=== PATIENT | male | born 1935 | race Caucasian/White ===

== ENCOUNTER → 2017-09-06 07:21 | Outpatient (CLI) | payer MEDICARE, BC, SELFPAY ==
[2017-09-06 08:13] LABS: Add Manual Diff / Slide Review NO; Basophils Percent Auto 0.1 % (0-2); Eosinophils Percent Auto 9.8 % (2-4); Hematocrit 43.1 % (41-53); Hemoglobin 14.4 g/dL (13.5-17.5); Lymphocytes Percent Auto 30.9 % (25-40); Mean Corpuscular HGB Conc 33.4 % (30-36); Mean Corpuscular Volume 95.8 fL (80-100); Monocytes Percent Auto 9.2 % (3-14); Neutrophils Absolute Auto 3000 /uL (3000-5900); Platelet Count 196 X10^3/uL (150-400); Red Cell Distribution Width 14.6 % (11.6-14.8); White Blood Cell Count 6.1 X10^3/uL (4.5-11.0)
[2017-09-06 08:37] LABS: Calcium 9.5 mg/dL (8.4-10.2); Cholesterol 167 mg/dL (140-199); Estimated Glomerular Filt Rate > 60.0 mL/min (>60); Glucose 106 mg/dL (80-110); HDL Cholesterol 42 mg/dL (40-60); HEMOLYSIS < 15 (0-50); LDL Cholesterol Calculated 108 mg/dL (<100); Potassium 4.9 mmol/L (3.4-5.1); Sodium 145 mmol/L (137-145); Triglycerides 87 mg/dL (35-150)
== END ==
PROVIDERS: Family Provider Family Medicine; PCP Family Medicine; Visit Provider Internal Medicine Cardiovascular Disease
DX: I48.91 Unspecified atrial fibrillation (principal)
CPT/HCPCS: 36415; 80048; 80061; 85025

== ENCOUNTER 2017-12-30 09:25 | Emergency (ER) | payer MEDICARE, BC, SELFPAY ==
[2017-12-30] VITALS (7 sets, daily range): BP systolic 90–111; BP diastolic 55–79; PULSE 42–89; RESP 14–19; TEMP 36.4–36.7; O2SAT 90–100; BMI 24.8
[2017-12-30 10:07] LABS: Add Manual Diff / Slide Review NO; Eosinophils Percent Auto 1.3 % (2-4); Hematocrit 42.7 % (41-53); Hemoglobin 14.8 g/dL (13.5-17.5); Mean Corpuscular HGB Conc 34.7 % (30-36); Mean Corpuscular Hemoglobin 33.2 PG (26-34); Mean Corpuscular Volume 95.6 fL (80-100); Monocytes Percent Auto 10.9 % (3-14); Neutrophils Absolute Auto 7200 /uL (3000-5900); Neutrophils Percent Auto 66.8 % (50-75); Platelet Count 204 X10^3/uL (150-400); Red Blood Cell Count 4.47 X10^6/uL (4.5-5.9); White Blood Cell Count 10.8 X10^3/uL (4.5-11.0)
[2017-12-30] MEDS: SODIUM CHLORIDE 0.9% 1,000 ML 1000 ML IV (10:15)
[2017-12-30 10:16] LABS: Alanine Aminotransferase 24 IU/L (21-72); Albumin 4.4 g/dL (3.5-5.0); Albumin Globulin Ratio 1.4 (1.0-2.8); Alkaline Phosphatase 46 U/L (38-126); Aspartate Aminotransferase 27 IU/L (17-59); BUN Creatinine Ratio 14.6 (6-22); Bilirubin Total 1.4 mg/dL (0.2-1.3); Blood Urea Nitrogen 19 mg/dL (9-20); Carbon Dioxide 26 mmol/L (22-32); Chloride 102 mmol/L (98-107); Creatine Kinase 121 U/L (55-170); Estimated Glomerular Filt Rate 52.9 mL/min (>60); Globulin 3.2 g/dL (1.7-4.1); Glucose 103 mg/dL (80-110); HEMOLYSIS 20 (0-50); Potassium 4.8 mmol/L (3.4-5.1); Sodium 138 mmol/L (137-145); Total Protein 7.6 g/dL (6.3-8.2)
--- NOTE | 2017-12-30 10:23 | ED.ARRPALP ---
HPI - Arrhythmia/Palpitations General Chief Complaint: Syncope Stated Complaint: WEAK,KNEES GIVE OUT,PASSED OUT Time Seen by Provider: 12/30/17 09:40 Source: patient Mode of arrival: ambulatory Limitations: no limitations History of Present Illness HPI narrative: Patient is an 82-year-old male with history of AFib on Xarelto presenting 2 days after syncopal episode. He was getting up to use the restroom 2 nights ago when he felt his heart racing he went down to his knees passed out he woke up of sitting up. He denies hitting his head the incident was not witnessed. Since then he has had difficulty ambulating he feels like his legs are giving out from under him. He still just does not feel quite right but denies any chest pain or heart palpitations. He has not passed out again. Id blood pressure is noted to be a little low at the moment systolic of 90. He says he has chronically low blood pressure. Related Data Home Medications Medication Instructions Recorded Confirmed vit C,D-Ua-lnwol-lutein-zeaxan 1 cap PO QDAY #0 cap 12/29/12 [Ocuvite Lutein and Zeaxanthin] Previous Rx's Medication Instructions Recorded albuterol sulfate [Proventil HFA] 2 puff INH SEE INSTRUCTIONS PRN #1 05/11/17 inh atorvastatin [Lipitor] 10 mg PO HS #90 tab 05/20/17 rivaroxaban [Xarelto] 15 mg PO QDAY #90 tab 06/14/17 metoprolol succinate ER 25 mg 25 mg PO QDAY #90 tab 08/18/17 tablet,extended release 24 hr Allergies Allergy/AdvReac Type Severity Reaction Status Date / Time No Known Drug Allergies Allergy Verified 12/30/17 09:47 Review of Systems Review of Systems All systems reviewed & are unremarkable except as noted in HPI and below Constitutional Denies chills, Denies fever(s), Denies lethargy and Denies weakness Cardiovascular Reports as per HPI, Denies chest pain, Reports syncope, Denies edema, Denies dyspnea and Denies dyspnea on exertion Respiratory Denies cough, Denies dyspnea, Denies dyspnea on exertion and Denies wheezing Gastrointestinal Gastrointestinal: Denies abdominal pain, Denies change in bowel habits, Denies diarrhea, Denies nausea and Denies vomiting Musculoskeletal Reports muscle weakness, Denies numbness and Denies stiffness Integumentary/Breasts Denies pruritus, Denies erythema, Denies rash and Denies wounds Neurologic Reports syncope, Denies numbness and Denies weakness Allergic/Immunologic Denies wheezing PFSH Medical History Atrial fibrillation (Acute) Surgical History History of vasectomy Status post colonoscopy Status post tonsillectomy and adenoidectomy Family History Father Diabetes mellitus Social History Smoking Status: Former smoker Exam Initial Vital Signs Initial Vital Signs: Vital Signs Temperature 98.1 F 12/30/17 09:43 Pulse Rate 70 12/30/17 09:43 Respiratory Rate 17 12/30/17 09:43 Blood Pressure 111/79 12/30/17 09:43 Pulse Oximetry 100 12/30/17 09:43 GENERAL: Alert elderly male, no acute distress. HEENT: Head atraumatic,EOMI, pupils reactive, face symmetric, [moist] mucous membranes CARDIOVASCULAR: Regular rate and rhythm without murmurs, rubs or gallops. RESPIRATORY: Breath sounds equal bilaterally, no wheezes rales or rhonchi. ABDOMEN: Soft, nontender. Normoactive bowel sounds all 4 quadrants. No guarding or rebound. [RECTAL:] [Hemoccult-positive, no hemorrhoids, nontender] : No CVA tenderness EXTREMITIES: Normal range of motion, no clubbing or edema. Neurovascularly intact NEUROLOGICAL: Alert and oriented x4.Normal gait and speech. Cranial nerves II through XII grossly intact. [Good qvwsyi-xr-xhle, good dqyh-vu-dfbf, strength equal bilaterally, no dysarthria or aphasia, sensation in tact to soft touch bilaterally, no visual changes, no facial droop] SKIN: Warm, dry, no laceration, no petechiae, no rashes or lesions. Course Orders Ordered: Discontinued Medications Sodium Chloride (Normal Saline 0.9%) 1,000 mls @ 1,000 mls/hr IV BOLUS ONE Stop: 12/30/17 10:48 Last Infusion: 12/30/17 12:00 Dose: 0 mls/hr Admin: 12/30/17 10:15 Dose: 1,000 mls/hr Vital Signs - 8 hr 12/30/17 09:43 12/30/17 09:46 12/30/17 10:13 Temperature 98.1 F Pulse Rate 70 42 L 89 Respiratory Rate 17 16 14 Blood Pressure 111/79 Blood Pressure [Left Arm] 111/79 90/55 L Pulse Oximetry 100 97 95 12/30/17 10:38 12/30/17 11:06 12/30/17 11:32 Temperature 97.5 F L Pulse Rate 86 Respiratory Rate 19 Blood Pressure Blood Pressure [Left Arm] 103/60 96/64 97/62 Pulse Oximetry 90 L MDM - Arrhythmia/Palpitations Lab Data Attestation: I reviewed the patient's lab results. Result diagrams: 12/30/17 10:00 12/30/17 10:00 Lab Results 12/30/17 12/30/17 12/30/17 Range/Units 10:00 10:00 11:05 WBC 10.8 (4.5-11.0) X10^3/uL RBC 4.47 L (4.5-5.9) X10^6/uL Hgb 14.8 (13.5-17.5) g/dL Hct 42.7 (41-53) % MCV 95.6 (80-100) fL MCH 33.2 (26-34) PG MCHC 34.7 (30-36) % RDW 14.0 (11.6-14.8) % Plt Count 204 (150-400) X10^3/uL Neut % (Auto) 66.8 (50-75) % Lymph % (Auto) 20.0 L (25-40) % [place] % (Auto) 10.9 (3-14) % Eos % (Auto) 1.3 L (2-4) % Baso % (Auto) 1.0 (0-2) % Neut # (Auto) 7200 H (7556-0841) /uL Sodium 138 (137-145) mmol/L Potassium 4.8 (3.4-5.1) mmol/L Chloride 102 (98-107) mmol/L Carbon Dioxide 26 (22-32) mmol/L BUN 19 (9-20) mg/dL Creatinine 1.30 H (0.66-1.25) mg/dL Estimated GFR 52.9 L (>60) mL/min BUN/Creatinine Ratio 14.6 (6-22) Glucose 103 (80-110) mg/dL Calcium 10.0 (8.4-10.2) mg/dL Total Bilirubin 1.4 H (0.2-1.3) mg/dL AST 27 (17-59) IU/L ALT 24 (21-72) IU/L Alkaline Phosphatase 46 (38-126) U/L Total Creatine Kinase 121 (55-170) U/L CK-MB (CK-2) 0.31 (<2.37) ng/mL CK-MB (CK-2) Rel Index 0.3 L (1.5-5.0) % Troponin I < 0.012 (0.01-0.034) ng/mL Total Protein 7.6 (6.3-8.2) g/dL Albumin 4.4 (3.5-5.0) g/dL Globulin 3.2 (1.7-4.1) g/dL Albumin/Globulin Ratio 1.4 (1.0-2.8) Urine RBC 1-5/hpf (0-5/HPF) Urine WBC None seen (0-5/HPF) Urine Bacteria None seen (None) Ur Culture Indicated? Cult not indicated Micro UA Comment Not Reportable Urine Dip Bedside Urine Glucose Negative Bedside Urine Bilirubin - Negative Bedside Urine Ketone - Negative Urine Specific [place] 1.025 Bedside Urine Occult Blood +/- Bedside Urine pH 6.0 Bedside Urine Protein +/- 15 Bedside Urine Urobilinogen - Negative Bedside Urine Nitrite - Negative Bedside Urine Leukocytes - Negative Esterase Imaging Data CT scan - head: Radiologist's impression: PROCEDURE: CT HEAD/BRAIN WO CON INDICATIONS: 82-year-old man with syncope unsteady gait x 2 days on xeralto no head inury TECHNIQUE: Noncontrast 4.5 mm thick angled axial sections acquired from the foramen magnum to the vertex, with coronal and sagittal reformats. For radiation dose reduction, the following was used: automated exposure control, adjustment of mA and/or kV according to patient size. COMPARISON: None. FINDINGS: Image quality: Excellent. CSF spaces: Basal cisterns are patent. No extra-axial fluid collections. The ventricles are symmetric in size and shape. Brain: No intracranial bleeds or masses. There is mild cerebral volume loss for age, with resultant ventricular and sulcal prominence. There are mild periventricular and deep white matter chronic small vessel ischemic changes. There is intracranial internal carotid artery atherosclerosis. Skull and face: Calvarium and visualized facial bones appear intact, without suspicious lesions. Sinuses: There is left maxillary sinus mucosal thickening. Mastoids are clear. IMPRESSION: 1. No acute intracranial abnormalities. 2. Cerebral volume loss and chronic microvascular ischemic changes. 3. Left maxillary sinus mucosal thickening. Dictated by: Tc Doe M.D. on 12/30/2017 at 11:05 ECG Data Attestation: I personally reviewed and interpreted this ECG as follows: Prior ECG tracings: available for review Interpretation: AFib rate [address] changes improved since prior EKG MDM Narrative Medical decision making narrative: Patient ambulatory to the restroom no difficulty. His heart rate does drop sometimes down into the 40s but he is asymptomatic. At this time will decrease his metoprolol from 25 and 50mg to 25mg BID Discharge Plan Departure Patient Disposition: Home Clinical Impression: Atrial fibrillation Discharge Date/Time: 12/30/17 12:13 Interventions: ED Discharge Assessment Last Done: 12/30/17 12:28 Instructions: DI for Atrial Fibrillation Activity Restrictions/Additional Instructions: *You have been diagnosed with atrial fibrillation *What to do: It is thought that you have passed out due to increased heart rate although now your heart rate is lower. Blood work and CT are negative. If your heart rate remains slow medication may need to be adjusted *Continue to take medications as directed Metoprolol 25 mg twice a day, instead of 25 mg in the morning and 50 mg at night *Follow up with your primary care provider in 2-3 days *Return to ER if you should have passing out, heart palpitations, chest pain, shortness of breath or any new, worsening or concerning symptoms Prescriptions: No Action vit C,D-Ai-ctkrl-lutein-zeaxan [Ocuvite Lutein and Zeaxanthin] 1 EACH capsule 1 cap PO QDAY Qty: 0 RF: 0 albuterol sulfate [Proventil HFA] 90 MCG/PUFF HFA aerosol inhaler 2 puff INH SEE INSTRUCTIONS PRNQty: 1 RF: 2 atorvastatin [Lipitor] 10 MG tablet 10 mg PO HS Qty: 90 RF: 2 rivaroxaban [Xarelto] 15 MG tablet 15 mg PO QDAY Qty: 90 RF: 0 metoprolol succinate [Toprol XL] 25 mg tablet extended release 24 hr 25 mg PO QDAY Qty: 90 RF: 3 Referrals: Shan Correia MD [Primary Care Provider] - Hannah Vogt MD [Physician] -
[2017-12-30 10:32] LABS: CKMB % Relative Index 0.3 % (1.5-5.0); Creatine Kinase MB 0.31 ng/mL (<2.37)
--- NOTE | 2017-12-30 10:32 | DI.CT.S_ITS ---
PROCEDURE: CT HEAD/BRAIN WO CON INDICATIONS: 82-year-old man with syncope unsteady gait x 2 days on xeralto no head inury TECHNIQUE: Noncontrast 4.5 mm thick angled axial sections acquired from the foramen magnum to the vertex, with coronal and sagittal reformats. For radiation dose reduction, the following was used: automated exposure control, adjustment of mA and/or kV according to patient size. COMPARISON: None. FINDINGS: Image quality: Excellent. CSF spaces: Basal cisterns are patent. No extra-axial fluid collections. The ventricles are symmetric in size and shape. Brain: No intracranial bleeds or masses. There is mild cerebral volume loss for age, with resultant ventricular and sulcal prominence. There are mild periventricular and deep white matter chronic small vessel ischemic changes. There is intracranial internal carotid artery atherosclerosis. Skull and face: Calvarium and visualized facial bones appear intact, without suspicious lesions. Sinuses: There is left maxillary sinus mucosal thickening. Mastoids are clear. IMPRESSION: 1. No acute intracranial abnormalities. 2. Cerebral volume loss and chronic microvascular ischemic changes. 3. Left maxillary sinus mucosal thickening. Dictated by: Tc Doe M.D. on 12/30/2017 at 11:05 Approved by: Tc Doe M.D. on 12/30/2017 at 11:40
--- NOTE | 2017-12-30 10:44 | PC.NURSE ---
Per pt, had a syncopal episode on Tu Am when pt got out of bed to bathroom and did not sustained injuries but pt down himself on his legs. Pt had similar sx about 5 yrs ago but not sure why. Pt has hx of afib and takes Metoprolol 50mg in AM and 25mg in PM. Denies taking additional dose but states had suffered from afib all night prior the syncope. Pt now here since PCP not available and has been weak, knees buckling with ambulation. Hasn't been eating well but hydrated adequately. Noted, pt has superficial abrasion, 1x3 cm in volar aspect of L FA and a narrow but long and large blister adjcent to the site. Pt denies gotten burn and wasn't sure how pt sustained the wound.
[2017-12-30 10:45] LABS: Troponin I < 0.012 ng/mL (0.01-0.034)
[2017-12-30 11:13] LABS: Bacteria Urine None Seen; WBC Urine None Seen (0-5/HPF)
[2017-12-30 11:30] LABS: Culture Indicated Urine Cult Not Indicated; RBC Urine 1-5/HPF (0-5/HPF)
--- NOTE | 2017-12-30 12:16 | PC.NURSE ---
Pt ambulated to the bathroom in stable gait and back to bed.
== END 2017-12-30 12:13 | disposition home or self-care (01) ==
PROVIDERS: Emergency Provider Emergency Medicine; Family Provider Family Medicine; PCP Family Medicine
DX: I48.91 Unspecified atrial fibrillation (principal); R55 Syncope and collapse
CPT/HCPCS: 70450; 80053; 81003; 81015; 82550; 82553; 84484; 85025; 93005; 96360; 96361; 99285

== ENCOUNTER → 2019-06-05 07:41 | Outpatient (CLI) | payer MEDICARE, BC, SELFPAY ==
[2019-06-05 08:15] LABS: Add Manual Diff / Slide Review NO; Basophils Absolute Auto 100 /uL (0-100); Basophils Percent Auto 1.9 % (0-2); Eosinophils Absolute Auto 600 /uL (0-450); Eosinophils Percent Auto 8.5 % (2-4); Hematocrit 46.1 % (41-53); Hemoglobin 15.8 g/dL (13.5-17.5); Lymphocytes Absolute Auto 1700 /uL (1100-4500); Lymphocytes Percent Auto 26.2 % (25-40); Mean Corpuscular HGB Conc 34.2 % (30-36); Mean Corpuscular Hemoglobin 32.9 PG (26-34); Mean Corpuscular Volume 96.3 fL (80-100); Monocytes Absolute Auto 500 /uL (0-900); Monocytes Percent Auto 8.3 % (3-14); Neutrophils Absolute Auto 3700 /uL (1500-7000); Neutrophils Percent Auto 55.1 % (50-75); Platelet Count 218 X10^3/uL (150-400); Red Blood Cell Count 4.79 X10^6/uL (4.5-5.9); Red Cell Distribution Width 13.9 % (11.6-14.8); White Blood Cell Count 6.7 X10^3/uL (4.5-11.0)
[2019-06-05 08:31] LABS: Alanine Aminotransferase 20 IU/L (<50); Albumin 4.7 g/dL (3.5-5.0); Albumin Globulin Ratio 1.3 (1.0-2.8); Alkaline Phosphatase 62 U/L (38-126); Aspartate Aminotransferase 31 IU/L (17-59); BUN Creatinine Ratio 14.2 (6-22); Bilirubin Total 0.9 mg/dL (0.2-1.3); Blood Urea Nitrogen 17 mg/dL (9-20); Calcium 10.2 mg/dL (8.4-10.2); Carbon Dioxide 27 mmol/L (22-32); Chloride 104 mmol/L (98-107); Cholesterol 179 mg/dL (140-199); Estimated Glomerular Filt Rate 57.8 mL/min (>60); Globulin 3.5 g/dL (1.7-4.1); Glucose 108 mg/dL (80-110); HDL Cholesterol 43 mg/dL (40-60); HEMOLYSIS < 15 (0-50); LDL Cholesterol Calculated 110 mg/dL (<100); Potassium 4.1 mmol/L (3.4-5.1); Sodium 141 mmol/L (137-145); Total Protein 8.2 g/dL (6.3-8.2); Triglycerides 130 mg/dL (35-150)
[2019-06-05 09:07] LABS: TSH w/ Reflex to FT4 2.77 uIU/mL (0.47-4.68)
== END ==
PROVIDERS: Family Provider Family Medicine; PCP Family Medicine; Referring Provider Family Medicine; Visit Provider Family Medicine
DX: E78.5 Hyperlipidemia, unspecified (principal); I48.0 Paroxysmal atrial fibrillation
CPT/HCPCS: 36415; 80053; 80061; 84443; 85025

== ENCOUNTER → 2020-03-29 07:48 | Outpatient (CLI) | payer MEDICARE, BC, SELFPAY ==
[2020-03-29 08:17] LABS: Add Manual Diff / Slide Review NO; Basophils Absolute Auto 0 /uL (0-100); Basophils Percent Auto 0.5 % (0-2); Eosinophils Absolute Auto 600 /uL (0-450); Eosinophils Percent Auto 8.3 % (2-4); Hematocrit 44.6 % (41-53); Lymphocytes Absolute Auto 1900 /uL (1100-4500); Mean Corpuscular HGB Conc 33.7 % (30-36); Mean Corpuscular Hemoglobin 32.7 PG (26-34); Mean Corpuscular Volume 97.1 fL (80-100); Monocytes Absolute Auto 600 /uL (0-900); Monocytes Percent Auto 9.2 % (3-14); Neutrophils Absolute Auto 3700 /uL (1500-7000); Platelet Count 215 X10^3/uL (150-400); Red Blood Cell Count 4.59 X10^6/uL (4.5-5.9); Red Cell Distribution Width 13.6 % (11.6-14.8); White Blood Cell Count 6.8 X10^3/uL (4.5-11.0)
[2020-03-29 08:49] LABS: Alanine Aminotransferase 19 IU/L (<50); Albumin 4.4 g/dL (3.5-5.0); Albumin Globulin Ratio 1.4 (1.0-2.8); Alkaline Phosphatase 62 U/L (38-126); Aspartate Aminotransferase 29 IU/L (17-59); Bilirubin Total 0.9 mg/dL (0.2-1.3); Blood Urea Nitrogen 17 mg/dL (9-20); Calcium 10.1 mg/dL (8.4-10.2); Carbon Dioxide 29 mmol/L (22-32); Chloride 104 mmol/L (98-107); Estimated Glomerular Filt Rate > 60.0 mL/min (>60); Globulin 3.1 g/dL (1.7-4.1); Glucose 104 mg/dL (80-110); HEMOLYSIS < 15 (0-50); Potassium 4.5 mmol/L (3.4-5.1); Sodium 138 mmol/L (137-145); Total Protein 7.5 g/dL (6.3-8.2)
[2020-03-29 09:16] LABS: TSH w/ Reflex to FT4 2.02 uIU/mL (0.47-4.68)
== END ==
PROVIDERS: Family Provider Family Medicine; PCP Family Medicine; Referring Provider Family Medicine; Visit Provider Family Medicine
DX: R55 Syncope and collapse (principal); R53.1 Weakness; I49.9 Cardiac arrhythmia, unspecified
CPT/HCPCS: 36415; 80053; 84443; 85025

== ENCOUNTER 2020-07-26 13:07 | Emergency (ER) | payer MEDICARE, BC, SELFPAY ==
[2020-07-26 13:12] VITALS: BP 133/71; PULSE 75; RESP 14; TEMP 37.3; O2SAT 96; BMI 25.4
--- NOTE | 2020-07-26 13:15 | ED_ITS ---
HPI - General Adult General Chief complaint: Headache Stated complaint: sick,headache x3 days, loss of strength Time Seen by Provider: 07/26/20 13:10 Source: patient Mode of arrival: Ambulatory (With cane) Limitations: no limitations History of Present Illness HPI narrative: Patient is an 84-year-old male. Is on anticoagulation for bradycardia and also atrial fibrillation. He has a pacemaker in place. He states that 3 days ago he developed a headache. He describes it as a pressure/pain behind both his eyes. He is not having any vision changes. Yesterday he took some ibuprofen and that helped his headache ?tremendously ?he has not taken anything today. At the time of my exam he states that he only has a small discomfort. He also states that over the past 3 days he has felt very weak. He describes it as a weakness in his arms and legs. This is why he is having to use a cane. He also describes a trembling in his hands. Related Data Home Medications Medication Instructions Recorded Confirmed vit C,Z-Ex-phuye-lutein-zeaxan 1 cap PO QDAY #0 cap 12/29/12 04/01/20 [Ocuvite Lutein and Zeaxanthin] flecainide 50 mg tablet 50 mg PO Q12H 01/04/18 04/01/20 apixaban 5 mg tablet 5 mg PO BID 06/02/19 04/01/20 Previous Rx's Medication Instructions Recorded atorvastatin 10 mg tablet 10 mg PO HS #90 tab 06/02/19 metoprolol succinate 25 mg 25 mg PO QDAY #90 tab 06/02/19 tablet,extended release 24 hr temazepam 15 mg capsule 15 mg PO BEDTIME PRN #30 cap 04/04/20 Allergies Allergy/AdvReac Type Severity Reaction Status Date / Time No Known Drug Allergies Allergy Verified 07/26/20 13:16 Review of Systems Constitutional Constitutional: Reports fatigue, Denies fever(s), Denies frequent falls, Reports headache(s), Reports malaise and Reports weakness Eyes Eyes: Denies blurry vision and Denies change in vision ENT Ears, Nose, Mouth, and Throat: Denies vertigo, Denies dizziness, Reports headache(s), Reports disequilibrium and Denies sore throat Cardiovascular Cardiovascular: Denies chest pain, Denies syncope, Denies rapid heart rate, Denies irregular heart rhythm, Denies lightheadedness and Denies dyspnea Respiratory Respiratory: Denies cough and Denies dyspnea Gastrointestinal Gastrointestinal: Denies abdominal pain, Denies change in bowel habits, Denies nausea and Denies vomiting Genitourinary Genitourinary: Denies dysuria, Reports urinary frequency, Reports urinary incontinence and Reports urinary urgency Genitourinary: Reports urinary frequency, Denies dysuria, Reports urinary incontinence and Reports urinary urgency Musculoskeletal Musculoskeletal: Denies arthralgias, Denies back pain and Denies myalgias Integumentary/Breasts Skin/Breast: Denies lesions and Denies rash Neurologic Neurologic: Denies behavioral changes, Denies confusion, Denies vertigo, Denies dizziness, Denies syncope, Denies frequent falls, Reports headache(s), Denies memory loss, Reports disequilibrium and Reports weakness Psychiatric Psychiatric: Denies behavioral changes, Denies confusion and Denies memory loss Endocrine Endocrine: Reports fatigue Hematologic/Lymphatic On Anticoagulants: Yes Allergic/Immunologic Allergic/Immunologic: Denies urticaria Patient History Medical History Asthma (1958) Atrial fibrillation Cataract (~2007) Hearing loss (~1999) Hyperlipidemia Macular degeneration Measles Melanoma Mumps Wound, open, forearm Surgical History Anesthesia History of vasectomy S/P surgery on nasal septum (1978) Status post colonoscopy (2004) Status post tonsillectomy and adenoidectomy Family History Father Diabetes mellitus Mother Lymph node cancer Social History marital status: Smoking Status: Former smoker alcohol intake: current (1-2 A DAY ) substance use type: does not use Smoking Status: Former smoker alcohol intake frequency: 0-2 drinks per day Substance Use Type: does not use Exam Initial Vital Signs Initial Vital Signs: Vital Signs Temperature 99.1 F 07/26/20 13:12 Pulse Rate 75 07/26/20 13:12 Respiratory Rate 14 07/26/20 13:12 Blood Pressure 133/71 07/26/20 13:12 Pulse Oximetry 96 07/26/20 13:12 Const General: cooperative, comfortable and well developed Limitations: mental status not altered HENTN Head: normal to inspection Eyes General: appearance normal, both eyes and all related structures Chest Chest: No crepitus and No tenderness Resp Effort & Inspection: normal respiratory effort Auscultation: clear to auscultation bilaterally Cardio Rate: regular rate Rhythm: regular rhythm GI Inspection: non-distended Palpation: soft Skin Lesions: no lesions Rashes: no rashes Neuro General: patient alert, patient awake and patient oriented x3 Cranial Nerves: CN's II-XI intact bilaterally Cognition: normal cognition Speech: speech normal Gait: normal gait (But with a cane) and gait assisted (Cane) Motor: muscle tone normal throughout Sensory Exam: no sensory deficits noted Extrem General: capillary refill normal Psych Appearance: grossly normal and well kempt Scores GCS [place] coma scale eye opening: Spontaneous Luis coma scale verbal response: Orientated Luis coma scale motor response: Obey commands Luis coma scale total score: 15 Course Orders Ordered: ED Orders 07/26/20 13:18 EKG-12 Lead Stat 07/26/20 13:25 Complete Blood Count AUTO DIFF Stat Comprehensive Metabolic Panel Stat Troponin & CK Cardiac Panel Stat 07/26/20 13:37 CT head/brain wo con Stat 07/26/20 15:41 Troponin & CK Cardiac Panel Stat 07/26/20 15:50 Urine Microscopic Stat Discontinued Medications Sodium Chloride (Normal Saline 0.9%) 1,000 mls @ 125 mls/hr IV CONT EMILIA Last Infusion: 07/26/20 16:20 Dose: 0 mls/hr Documented by: Admin: 07/26/20 13:31 Dose: 125 mls/hr Documented by: MYRANDA Vital Signs Vital signs: Vital Signs - 8 hr 07/26/20 13:12 07/26/20 14:12 07/26/20 14:30 Temperature 99.1 F Pulse Rate 75 58 L 62 Respiratory Rate 14 Blood Pressure 133/71 120/65 Pulse Oximetry 96 95 92 07/26/20 15:00 07/26/20 15:30 07/26/20 16:00 Temperature Pulse Rate 64 68 67 Respiratory Rate Blood Pressure 123/64 126/67 128/65 Pulse Oximetry 97 98 99 Medical Decision Making Lab Data Lab results reviewed: Yes I reviewed the patient's lab results. Result diagrams: 07/26/20 13:25 07/26/20 13:25 Labs: Lab Results 07/26/20 07/26/20 07/26/20 Range/Units 13:25 13:25 15:50 WBC 12.9 H (4.5-11.0) X10^3/uL RBC 4.66 (4.5-5.9) X10^6/uL Hgb 15.0 (13.5-17.5) g/dL Hct 44.6 (41-53) % MCV 95.7 (80-100) fL MCH 32.1 (26-34) PG MCHC 33.5 (30-36) % RDW 13.4 (11.6-14.8) % Plt Count 213 (150-400) X10^3/uL Neut % (Auto) 80.5 H (50-75) % Lymph % (Auto) 10.6 L (25-40) % [place] % (Auto) 8.6 (3-14) % Eos % (Auto) 0.1 L (2-4) % Baso % (Auto) 0.2 (0-2) % Neut # (Auto) 20578 H (7890-6210) /uL Lymph # (Auto) 1400 (6339-8155) /uL [place] # (Auto) 1100 H (0-900) /uL Eos # (Auto) 0 (0-450) /uL Baso # (Auto) 0 (0-100) /uL Sodium 133 L (137-145) mmol/L Potassium 3.9 (3.4-5.1) mmol/L Chloride 100 (98-107) mmol/L Carbon Dioxide 24 (22-32) mmol/L BUN 17 (9-20) mg/dL Creatinine 1.33 H (0.66-1.25) mg/dL Estimated GFR 51.2 L (>60) mL/min BUN/Creatinine Ratio 12.8 (6-22) Glucose 98 (80-110) mg/dL Calcium 10.2 (8.4-10.2) mg/dL Total Bilirubin 1.1 (0.2-1.3) mg/dL AST 31 (17-59) IU/L ALT 21 (<50) IU/L Alkaline Phosphatase 63 (38-126) U/L Total Creatine Kinase 172 H (55-170) U/L CK-MB (CK-2) 0.70 (<2.37) ng/mL CK-MB (CK-2) Rel Index 0.4 L (1.5-5.0) % Troponin I 0.015 (0.01-0.034) ng/mL Total Protein 8.0 (6.3-8.2) g/dL Albumin 4.6 (3.5-5.0) g/dL Globulin 3.4 (1.7-4.1) g/dL Albumin/Globulin Ratio 1.4 (1.0-2.8) Urine RBC 1-5/hpf (0-5/HPF) Urine WBC 0-1/hpf (0-5/HPF) Ur Squamous Epith Cells 0-1 /hpf (0-5/HPF) Amorphous Sediment 1+ Urine Bacteria None seen (None) Granular Casts 1-5/lpf (None) Urine Mucus 1+ H (Negative) Ur Culture Indicated? Cult not indicated Urine Dip Bedside Urine Glucose Negative Bedside Urine Bilirubin - Negative Bedside Urine Ketone + 15 Urine Specific [place] 1.025 Bedside Urine Occult Blood + Bedside Urine pH 6 Bedside Urine Protein - Negative Bedside Urine Urobilinogen - Negative Bedside Urine Nitrite - Negative Bedside Urine Leukocytes - Negative Esterase Point of care testing: Urine Dip Bedside Urine Glucose Negative Bedside Urine Bilirubin - Negative Bedside Urine Ketone + 15 Urine Specific [place] 1.025 Bedside Urine Occult Blood + Bedside Urine pH 6 Bedside Urine Protein - Negative Bedside Urine Urobilinogen - Negative Bedside Urine Nitrite - Negative Bedside Urine Leukocytes - Negative Esterase Imaging Data CT scan - head: Radiologist's Impression: [address] [id number] Scan ReportSigned Patient: Donavan Mendieta TMR#: [id number]: 6Acct:[id number]/Sex: 84 / MDate of Service: 07/26/20Loc: EDAccession Number: [id number] Procedure: CT head/brain wo con Ordering Provider: Martin Arita D.O. PROCEDURE: CT HEAD/BRAIN WO CON INDICATIONS: Bilateral headache with bilateral upper lower extremity weak TECHNIQUE: Noncontrast 4.5 mm thick angled axial sections acquired from the foramen magnum to the vertex, with coronal and sagittal reformats. For radiation dose reduction, the following was used: automated exposure control, adjustment of mA and/or kV according to patient size. COMPARISON: None. FINDINGS: Image quality: Excellent. CSF spaces: Basal cisterns are patent. No extra-axial fluid collections. The ventricles are symmetric in size and shape. Brain: No intracranial bleeds or masses. There is cerebral volume loss for age, with resultant ventricular and sulcal prominence. There are periventricular and deep white matter chronic small vessel ischemic changes. There is intracranial internal carotid artery atherosclerosis. Skull and face: Calvarium and visualized facial bones appear intact, without suspicious lesions. Sinuses: Visualized sinuses and mastoids are clear. IMPRESSION: No acute intracranial disease process. Dictated by: Mayte Ocoha MD, PhD on 07/26/2020 at 13:52 Approved by: Mayte Ochoa MD, PhD on 07/26/2020 at 13:53 ECG Data Attestation: I personally reviewed and interpreted this ECG as follows: Prior ECG tracings: not available for review Interpretation: Atrially paced Ventricular rate is 63 Normal QRS Normal QTC No ST T wave changes MDM Narrative Medical decision making narrative: He has had symptoms for [address] is unremarkable. While lying in bed he has got a nonfocal neurologic exam however he did have quite a bit of unsteadiness with transitioning from the bed to his wheelchair. There is no signs of intracranial hemorrhage. No chest pain. There is no signs of any infection. His urine is unremarkable. Patient states he would like to go home. Unfortunately do not have a specific diagnosis. He does not have vertigo. Outside the window for any tPA or other code IR. He is afebrile. We discussed return precautions and follow-up instructions. His was instructed that she needed contact his primary doctor for follow-up. They both expressed understanding and agreement. Discharge Plan Departure Patient Disposition: Home Clinical Impression: Headache, Weakness Instructions: DI for Headache Activity Restrictions/Additional Instructions: Your workup here in the emergency department is very reassuring. Your head CT is unremarkable. There is no signs of any infections. Continue all of your medications as directed. Contact your primary provider for a follow-up. Return to the emergency department for any new or worsening symptoms Prescriptions: No Action Eliquis 5 mg tablet 5 mg PO BID RF: 0 atorvastatin [Lipitor] 10 mg tablet 10 mg PO HS Qty: 90 RF: 2 metoprolol succinate [Toprol XL] 25 mg tablet extended release 24 hr 25 mg PO QDAY Qty: 90 RF: 3 vit C,C-Zu-vhpui-lutein-zeaxan [Ocuvite Lutein and Zeaxanthin] 1 EACH capsule 1 cap PO QDAY Qty: 0 RF: 0 temazepam 15 mg capsule 15 mg PO BEDTIME PRN (Reason: sleep) Qty: 30 RF: 0 flecainide 50 mg tablet 50 mg PO Q12H RF: 0 Referrals: Shan Correia MD [Primary Care Provider] -
[2020-07-26] MEDS: SODIUM CHLORIDE 0.9% 1,000 ML 125 ML IV (13:31)
--- NOTE | 2020-07-26 13:37 | DI.CT.S_ITS ---
PROCEDURE: CT HEAD/BRAIN WO CON INDICATIONS: Bilateral headache with bilateral upper lower extremity weak TECHNIQUE: Noncontrast 4.5 mm thick angled axial sections acquired from the foramen magnum to the vertex, with coronal and sagittal reformats. For radiation dose reduction, the following was used: automated exposure control, adjustment of mA and/or kV according to patient size. COMPARISON: None. FINDINGS: Image quality: Excellent. CSF spaces: Basal cisterns are patent. No extra-axial fluid collections. The ventricles are symmetric in size and shape. Brain: No intracranial bleeds or masses. There is cerebral volume loss for age, with resultant ventricular and sulcal prominence. There are periventricular and deep white matter chronic small vessel ischemic changes. There is intracranial internal carotid artery atherosclerosis. Skull and face: Calvarium and visualized facial bones appear intact, without suspicious lesions. Sinuses: Visualized sinuses and mastoids are clear. IMPRESSION: No acute intracranial disease process. Dictated by: Mayte Ochoa MD, PhD on 07/26/2020 at 13:52 Approved by: Mayte Ochoa MD, PhD on 07/26/2020 at 13:53
[2020-07-26 13:49] LABS: Alanine Aminotransferase 21 IU/L (<50); Albumin 4.6 g/dL (3.5-5.0); Albumin Globulin Ratio 1.4 (1.0-2.8); Alkaline Phosphatase 63 U/L (38-126); Aspartate Aminotransferase 31 IU/L (17-59); BUN Creatinine Ratio 12.8 (6-22); Bilirubin Total 1.1 mg/dL (0.2-1.3); Blood Urea Nitrogen 17 mg/dL (9-20); Calcium 10.2 mg/dL (8.4-10.2); Carbon Dioxide 24 mmol/L (22-32); Chloride 100 mmol/L (98-107); Creatine Kinase 172 U/L (55-170); Estimated Glomerular Filt Rate 51.2 mL/min (>60); Globulin 3.4 g/dL (1.7-4.1); Glucose 98 mg/dL (80-110); HEMOLYSIS < 15 (0-50); Potassium 3.9 mmol/L (3.4-5.1); Sodium 133 mmol/L (137-145)
[2020-07-26 13:58] LABS: Add Manual Diff / Slide Review NO; Basophils Absolute Auto 0 /uL (0-100); Basophils Percent Auto 0.2 % (0-2); Eosinophils Absolute Auto 0 /uL (0-450); Eosinophils Percent Auto 0.1 % (2-4); Hematocrit 44.6 % (41-53); Lymphocytes Absolute Auto 1400 /uL (1100-4500); Lymphocytes Percent Auto 10.6 % (25-40); Mean Corpuscular HGB Conc 33.5 % (30-36); Mean Corpuscular Hemoglobin 32.1 PG (26-34); Mean Corpuscular Volume 95.7 fL (80-100); Monocytes Absolute Auto 1100 /uL (0-900); Monocytes Percent Auto 8.6 % (3-14); Neutrophils Absolute Auto 10400 /uL (1500-7000); Neutrophils Percent Auto 80.5 % (50-75); Platelet Count 213 X10^3/uL (150-400); Red Blood Cell Count 4.66 X10^6/uL (4.5-5.9); Red Cell Distribution Width 13.4 % (11.6-14.8); White Blood Cell Count 12.9 X10^3/uL (4.5-11.0)
[2020-07-26 13:59] LABS: Troponin I 0.015 ng/mL (0.01-0.034)
[2020-07-26 14:03] LABS: CKMB % Relative Index 0.4 % (1.5-5.0)
[2020-07-26 14:12] VITALS: PULSE 58; O2SAT 95
[2020-07-26 14:30] VITALS: BP 120/65; PULSE 62; O2SAT 92
[2020-07-26 15:00] VITALS: BP 123/64; PULSE 64; O2SAT 97
[2020-07-26 15:30] VITALS: BP 126/67; PULSE 68; O2SAT 98
[2020-07-26 16:00] VITALS: BP 128/65; PULSE 67; O2SAT 99
[2020-07-26 16:10] LABS: Bacteria Urine None Seen
[2020-07-26 16:22] LABS: Amorphous Sediment Urine 1+; Culture Indicated Urine Cult Not Indicated; Granular Casts Urine 1-5/LPF; Mucus Urine 1+ (Negative); RBC Urine 1-5/HPF (0-5/HPF); Squamous Epithelial Cell Urine 0-1 /HPF (0-5/HPF); WBC Urine 0-1/HPF (0-5/HPF)
== END 2020-07-26 16:30 | disposition home or self-care (01) ==
PROVIDERS: Emergency Provider Emergency Medicine; Family Provider Family Medicine; PCP Family Medicine
DX: R51.9 Headache, unspecified (principal); R53.1 Weakness
CPT/HCPCS: 36415; 70450; 80053; 81003; 81015; 82550; 82553; 84484; 85025; 93005; 96360; 96361; 99284

== ENCOUNTER → 2021-02-06 14:03 | Outpatient (CLI) | payer MEDICARE, BC, SELFPAY ==
--- NOTE | 2021-02-06 14:05 | DI.RAD.S_ITS ---
PROCEDURE: XR CHEST 2V INDICATIONS: cough TECHNIQUE: 2 views of the chest were acquired. COMPARISON: [facility], , CHEST 1 VIEW, 05/06/2017, 22:50. FINDINGS: Surgical changes and devices: Pacemaker Lungs and pleura: Lungs are clear. No pleural effusions or pneumothorax. Mediastinum: Mediastinal contours are normal. Heart size is normal. Bones and chest wall: No suspicious bony abnormalities. Soft tissues appear unremarkable. IMPRESSION: No evidence acute pulmonary process. Dictated by: Geoffrey Saleh M.D. on 02/06/2021 at 14:24 Approved by: Geoffrey Saleh M.D. on 02/06/2021 at 14:24
[2021-02-06 14:41] LABS: Add Manual Diff / Slide Review NO; Basophils Absolute Auto 0 /uL (0-100); Basophils Percent Auto 0.3 % (0-2); Eosinophils Absolute Auto 0 /uL (0-450); Eosinophils Percent Auto 0.6 % (2-4); Hematocrit 42.9 % (41-53); Hemoglobin 14.4 g/dL (13.5-17.5); Lymphocytes Absolute Auto 1100 /uL (1100-4500); Lymphocytes Percent Auto 17.6 % (25-40); Mean Corpuscular HGB Conc 33.6 % (30-36); Mean Corpuscular Hemoglobin 32.7 PG (26-34); Mean Corpuscular Volume 97.3 fL (80-100); Monocytes Absolute Auto 900 /uL (0-900); Monocytes Percent Auto 14.7 % (3-14); Neutrophils Absolute Auto 4200 /uL (1500-7000); Neutrophils Percent Auto 66.8 % (50-75); Platelet Count 177 X10^3/uL (150-400); Red Cell Distribution Width 13.9 % (11.6-14.8); White Blood Cell Count 6.3 X10^3/uL (4.5-11.0)
[2021-02-06 14:58] LABS: Alanine Aminotransferase 26 IU/L (<50); Albumin 4.4 g/dL (3.5-5.0); Albumin Globulin Ratio 1.4 (1.0-2.8); Alkaline Phosphatase 64 U/L (38-126); Aspartate Aminotransferase 38 IU/L (17-59); Bilirubin Total 0.3 mg/dL (0.2-1.3); Blood Urea Nitrogen 18 mg/dL (9-20); Calcium 9.5 mg/dL (8.4-10.2); Carbon Dioxide 26 mmol/L (22-32); Chloride 101 mmol/L (98-107); Estimated Glomerular Filt Rate 52.9 mL/min (>60); Globulin 3.1 g/dL (1.7-4.1); Glucose 106 mg/dL (80-110); HEMOLYSIS < 15 (0-50); Potassium 4.2 mmol/L (3.4-5.1); Sodium 137 mmol/L (137-145); Total Protein 7.5 g/dL (6.3-8.2)
[2021-02-06 15:06] LABS: NT-proBNP (BNP-Adult 18+) 84 pg/mL (<450)
== END ==
PROVIDERS: Family Provider Family Medicine; PCP Family Medicine; Referring Provider Nurse Practitioner; Visit Provider Nurse Practitioner
DX: R05.9 Cough, unspecified; R06.2 Wheezing; R06.02 Shortness of breath; Z95.0 Presence of cardiac pacemaker
CPT/HCPCS: 36415; 71046; 80053; 83880; 85025

== ENCOUNTER 2021-02-13 09:45 | Emergency (ER) | payer MEDICARE, BC, SELFPAY ==
[2021-02-13] VITALS (14 sets, daily range): BP systolic 90–123; BP diastolic 62–79; PULSE 72–125; RESP 6–25; TEMP 36.6; O2SAT 91–98; BMI 24.4
--- NOTE | 2021-02-13 10:23 | ED_ITS ---
HPI - URI/Sore Throat General Chief Complaint: Upper Respiratory Symptoms Stated Complaint: Wants COVID Test/Having Symptoms/Wants Antibiotics Time Seen by Provider: 02/13/21 10:22 Source: patient Mode of arrival: Ambulatory Limitations: no limitations History of Present Illness HPI Narrative: This is an 85-year-old male who comes emergency department with request for COVID test. He states he has symptoms and would like antibiotics. Patient states he has had insomnia had difficulty with sleeping he has had tacos nges to taste in that his food taste badly. He has had general body aches. He has had a cough which has been nonproductive been slowly increasing. He denies headache. He denies chest pain or shortness of breath. He has had some lightheadedness. He denies any syncope or near-syncope. No nausea or vomiting. No diarrhea constipation. He has had some urinary incontinence which has been mild on the way to the bathroom which is somewhat new but no dysuria urgency or frequency. States he has some chronic balance issues in the seem to be a little bit worse. He does have a history of cardiac arrhythmias he does have a pacemaker but no cardiac stents or prior cardiac interventions otherwise. He states he was having episodes of bradycardia resulting in syncope as well as tachyarrhythmias. He is on apixaban, atorvastatin, flecainide and metoprolol daily. He smokes a pipe daily, and alcoholic drink daily and denies any illicit. Dr. Helton is his primary care. Dr. Zepeda is his laser print operator with [facility]. Related Data Home Medications Medication Instructions Recorded Confirmed vit C,B-Lq-spqrxt-lutein-zeaxan 60 1 cap PO QDAY #0 cap 12/29/12 02/06/21 mg-13.5 mg-15 mg-2 mg-6 mg capsule (Ocuvite Lutein and Zeaxanthin) flecainide 50 mg tablet 50 mg PO Q12H 01/04/18 02/06/21 apixaban 5 mg tablet (Eliquis) 5 mg PO BID 06/02/19 02/06/21 Previous Rx's Medication Instructions Recorded atorvastatin 10 mg tablet (Lipitor) 10 mg PO HS #90 tab 06/02/19 metoprolol succinate 25 mg 25 mg PO QDAY #90 tab 06/02/19 tablet,extended release 24 hr (Toprol XL) temazepam 15 mg capsule 15 mg PO BEDTIME PRN #30 cap 04/04/20 flecainide 50 mg tablet 50 mg PO Q8H #30 tab 02/13/21 Allergies Allergy/AdvReac Type Severity Reaction Status Date / Time No Known Drug Allergies Allergy Verified 02/13/21 09:59 Review of Systems Review of Systems ROS Unobtainable: All systems reviewed & are unremarkable except as noted in HPI and below Patient History Medical History Asthma (1958) Atrial fibrillation Cataract (~2007) Hearing loss (~1999) Hyperlipidemia Macular degeneration Measles Melanoma Mumps Wound, open, forearm Surgical History Anesthesia History of vasectomy S/P surgery on nasal septum (1978) Status post colonoscopy (2004) Status post tonsillectomy and adenoidectomy Family History Father Diabetes mellitus Mother Lymph node cancer Social History marital status: Smoking Status: Former smoker alcohol intake: current (1-2 A DAY ) substance use type: does not use Smoking Status: Former smoker tobacco type: pipe alcohol intake frequency: 0-2 drinks per day Substance Use Type: does not use Exam Narrative Exam Narrative: GENERAL: Alert and oriented x three, elderly male in mild distress. HEENT: Head normocephalic, atraumatic, EOMI, pupils reactive, face symmetric, moist mucous membranes NECK: Supple, full range of motion CARDIOVASCULAR: Tachycardic but regular rate and rhythm without murmurs, rubs or gallops. No swelling bilateral lower extremities. RESPIRATORY: Breath sounds equal bilaterally, no wheezes rales or rhonchi. No tachypnea accessory muscle use. Patient speaks in full sentences. ABDOMEN: Soft, nontender. Normoactive bowel sounds all 4 quadrants. No guarding or rebound, rigidity, no mass : No CVA tenderness EXTREMITIES: Normal range of motion, no edema. Neurovascularly intact NEUROLOGICAL: Cranial nerves II through XII grossly intact. Moving all extremities SKIN: Warm, dry, no petechiae, no rashes or lesions. Initial Vital Signs Initial Vital Signs: Vital Signs Temperature 97.9 F 02/13/21 09:55 Pulse Rate 122 H 02/13/21 09:55 Respiratory Rate 24 02/13/21 09:55 Blood Pressure 123/79 02/13/21 09:55 Pulse Oximetry 97 02/13/21 09:55 Course Orders Ordered: Discontinued Medications Sodium Chloride (Normal Saline 0.9%) 1,000 mls @ 150 mls/hr IV CONT EMILIA Last Infusion: 02/13/21 13:22 Dose: 0 mls/hr Documented by: Infusion: 02/13/21 12:28 Dose: 999 mls/hr Documented by: Admin: 02/13/21 10:49 Dose: 150 mls/hr Documented by: MYRANDA Reevaluation(s) Reevaluation #1: Patient has had some mild lightheadedness he has been tachycardic in the 120s persistently with a soft pressure in the 90s. He states that sometimes he will take half tablet flecainide extra if he feels that he is in AFib with a high heart rate. He is COVID positive his labs and x-ray were reviewed with the patient. At this time plan to check out with his Cardiology team for recommendations. Patient denies any other symptoms at this time. Time: 12:43 Reevaluation #2: Patient has cardioverted and is in the 60s here in the department. Discussed that I had talked over with Cardiology and spoke with Dr. Vogt after he cardioverted. We suspect that he is likely having some cardiac irritation from his COVID infection. He was recommended to increase his flecainide 50 mg t.i.d.. Patient is reluctant but states he is willing to take an extra 1 which she sometimes does. He and I also discussed he can call to chat with his Cardiology team over the phone which may give him some reassurance. He was encouraged to return if he has increased episodes but we discussed his interrogation does show 2 episodes in the past month today in the 14 in the prior episode was in October. All questions answered. Patient does not feel symptomatic and would like very much to return home. Patient was offered monoclonal antibody for at infusion solutions with an order but he politely defers after discussion about the medication risks and benefits and that is Emergency authorized at this time. He states he is vaccinated for COVID. Time: 14:53 Consultations Consultation #1: Dr. Brown, does recommend that we interrogate the patient's pacemaker. If he has been anticoagulated for 4 weeks and his blood pressures are soft we could cardiovert him. But he does suggest 1st giving him fluid bolus to see if he response to this with his blood pressures as he does not appear clinically fluid overloaded. His BNP is elevated but his physical exam a nd chest x-ray he does not appear fluid overloaded. He did discuss giving the patient some metoprolol but his pressures have been in the 90s fairly persistently in the department. Consultation #2: Dr. Vogt, cardiology. He also works with Dr. raphael canseco. We reviewed patient's interrogation today he has had 2 episodes 1 today and 1 on the which was similar his last episode was in October with a rate typically in the 120 range. Device does appear to be working appropriately. He recommends increasing his flecainide today to 50 mg t.i.d. there was discussion about 100 mg b.i.d. but because of patient's COVID infection and restrictions for him to be able to follow-up for repeat EKGs appropriately 50 mg t.i.d. was selected. He does want patient to follow up. We reviewed that otherwise from a COVID infection standpoint he is stable and will likely be discharged home. Time: 14:40 Vital Signs Vital signs: Vital Signs - 8 hr 02/13/21 11:50 02/13/21 11:58 02/13/21 12:00 Pulse Rate 121 H 122 H 122 H Respiratory Rate 18 16 7 L Blood Pressure 93/70 108/63 95/66 Pulse Oximetry 95 96 94 02/13/21 12:20 02/13/21 12:30 02/13/21 15:09 Pulse Rate 121 H 121 H 72 Respiratory Rate 24 18 18 Blood Pressure 101/66 102/72 101/62 Pulse Oximetry 97 98 94 MDM - URI/Sore Throat Lab Data Result diagrams: 02/13/21 10:20 02/13/21 10:20 Labs: Lab Results 02/13/21 02/13/21 02/13/21 Range/Units 09:51 10:20 10:20 WBC 4.8 (4.5-11.0) X10^3/uL RBC 4.51 (4.5-5.9) X10^6/uL Hgb 14.3 (13.5-17.5) g/dL Hct 42.9 (41-53) % MCV 95.1 (80-100) fL MCH 31.7 (26-34) PG MCHC 33.4 (30-36) % RDW 13.7 (11.6-14.8) % Plt Count 169 (150-400) X10^3/uL Neut % (Auto) 67.6 (50-75) % Lymph % (Auto) 18.6 L (25-40) % Island % (Auto) 13.1 (3-14) % Eos % (Auto) 0.2 L (2-4) % Baso % (Auto) 0.5 (0-2) % Neut # (Auto) 3200 (3474-1450) /uL Lymph # (Auto) 900 L (1400-4002) /uL Island # (Auto) 600 (0-900) /uL Eos # (Auto) 0 (0-450) /uL Baso # (Auto) 0 (0-100) /uL PT 18.1 H (10.1-12.7) SECONDS INR 1.6 H (0.9-1.3) APTT 35 (26.4-36.2) SECONDS Sodium (137-145) mmol/L Potassium (3.4-5.1) mmol/L Chloride (98-107) mmol/L Carbon Dioxide (22-32) mmol/L BUN (9-20) mg/dL Creatinine (0.66-1.25) mg/dL Estimated GFR (>60) mL/min BUN/Creatinine Ratio (6-22) Glucose (80-110) mg/dL Calcium (8.4-10.2) mg/dL Magnesium (1.6-2.3) mg/dL Total Bilirubin (0.2-1.3) mg/dL AST (17-59) IU/L ALT (<50) IU/L Alkaline Phosphatase (38-126) U/L Total Creatine Kinase (55-170) U/L CK-MB (CK-2) (<2.37) ng/mL CK-MB (CK-2) Rel Index (1.5-5.0) % Troponin I (0.01-0.034) ng/mL NT-Pro-B Natriuret Pep (<450) pg/mL Total Protein (6.3-8.2) g/dL Albumin (3.5-5.0) g/dL Globulin (1.7-4.1) g/dL Albumin/Globulin Ratio (1.0-2.8) SARS-CoV-2 (PCR) Positive H (Negative) 02/13/21 02/13/21 Range/Units 10:20 10:20 WBC (4.5-11.0) X10^3/uL RBC (4.5-5.9) X10^6/uL Hgb (13.5-17.5) g/dL Hct (41-53) % MCV (80-100) fL MCH (26-34) PG MCHC (30-36) % RDW (11.6-14.8) % Plt Count (150-400) X10^3/uL Neut % (Auto) (50-75) % Lymph % (Auto) (25-40) % Island % (Auto) (3-14) % Eos % (Auto) (2-4) % Baso % (Auto) (0-2) % Neut # (Auto) (5869-7424) /uL Lymph # (Auto) (5842-0117) /uL Island # (Auto) (0-900) /uL Eos # (Auto) (0-450) /uL Baso # (Auto) (0-100) /uL PT (10.1-12.7) SECONDS INR (0.9-1.3) APTT (26.4-36.2) SECONDS Sodium 133 L (137-145) mmol/L Potassium 4.1 (3.4-5.1) mmol/L Chloride 100 (98-107) mmol/L Carbon Dioxide 25 (22-32) mmol/L BUN 17 (9-20) mg/dL Creatinine 1.11 (0.66-1.25) mg/dL Estimated GFR > 60.0 (>60) mL/min BUN/Creatinine Ratio 15.3 (6-22) Glucose 88 (80-110) mg/dL Calcium 9.0 (8.4-10.2) mg/dL Magnesium 2.1 (1.6-2.3) mg/dL Total Bilirubin 0.7 (0.2-1.3) mg/dL AST 34 (17-59) IU/L ALT 23 (<50) IU/L Alkaline Phosphatase 63 (38-126) U/L Total Creatine Kinase 132 (55-170) U/L CK-MB (CK-2) 0.43 (<2.37) ng/mL CK-MB (CK-2) Rel Index 0.3 L (1.5-5.0) % Troponin I < 0.012 (0.01-0.034) ng/mL NT-Pro-B Natriuret Pep 870 H (<450) pg/mL Total Protein 7.0 (6.3-8.2) g/dL Albumin 3.9 (3.5-5.0) g/dL Globulin 3.1 (1.7-4.1) g/dL Albumin/Globulin Ratio 1.3 (1.0-2.8) SARS-CoV-2 (PCR) (Negative) Imaging Data Chest x-ray: Radiologist's Impression: [address] [id number] ReportSigned Patient: Donavan Mendieta TMR#: [id number]: 6Acct:[id number]/Sex: 85 / MDate of Service: 02/13/21Loc: EDAccession Number: [id number] Procedure: XR chest 1V Ordering Provider: Shima Gonzalez D.O. PROCEDURE: XR CHEST 1V INDICATIONS: arrhythmia, +covid TECHNIQUE: One view of the chest was acquired. COMPARISON: [facility], , XR CHEST 2V, 02/06/2021, 14:11. FINDINGS: Surgical changes and devices: Dual lead cardiac pacer. Lungs and pleura: Scattered subsegmental atelectasis and/or scarring. No focal consolidation. No pleural effusion or pneumothorax. Mediastinum: Mediastinal contours appear normal. Heart size is normal. Bones and chest wall: No suspicious bony lesions. Overlying soft tissues appear unremarkable. IMPRESSION: Scattered subsegmental atelectasis and/or scarring. No focal consolidation. Dictated by: Jose Luis Ryan M.D. on 02/13/2021 at 11:41 Approved by: Jose Luis Ryan M.D. on 02/13/2021 at 11:42 ECG Data Attestation: I personally reviewed and interpreted this ECG as follows: Prior ECG tracings: available for review Interpretation: Sinus tachycardia rate of 120 4p are 168 QRS of 94 and QTC of 479. No acute ST changes appreciated. Patient did have a change on telemetry which looked like a wide complex QRS in the 120s and was noted on EKG that he is now in a paced rhythm. EKG number shows a ventricularly paced rhythm with a rate of 124 QRS of 146 and QTC of 531. Patient is persistently paste to the 2nd EKG which is only 10 minutes later. Telemetry has patient at rate of 60 and regular. MDM Narrative Medical decision making narrative: This is an 85-year-old male who comes in requesting COVID testing. He has been having some mild respiratory symptoms that seem consistent as well as some taste changes. Patient is COVID positive. He had chest x-ray and lab work obtained is he does have a tachycardia that is been persistent in the 120s. He appear to be in sinus tachycardia initially rhythm change showed paced rhythm in the 120s. His labs show a slight elevation his BNP but he is otherwise clinically not fluid overloaded. Spoke with cardiology who recommends interrogation pacemaker and fluid bolus. During his stay patient spontaneously cardioverted and I spoke with Cardiology again and they recommend increasing his flecainide. Patient otherwise appears stable and appropriate for discharge home. We discussed all recommendations he is reluctant to increase his flecainide 50 mg t.i.d. but states he does sometimes take an extra tablet and is open to this. He and I also discussed chatting with his Cardiology team himself which may give him some reassurance about changing his medications he is supposed to have at follow-up appointment this week. Discharge Plan Departure Patient Disposition: Home Clinical Impression: COVID-19 virus infection, Atrial flutter Instructions: DI for Atrial Flutter Activity Restrictions/Additional Instructions: Follow-up with your cardiology office. Touch base to let them know that you are COVID positive they may have particular protocols for this. It is recommended by Dr. Vogt today to increase your flecainide to 50 mg 3 times daily or every 8 hours. A prescription has been sent to [facility] in [place]. I suspect that your having an increased frequency of your heart arrhythmias secondary to her current COVID infection. You do not have any changes on her chest x-ray no signs of pneumonia. Continue your other home medications as prescribed. *What to do: * per recommendations from the CDC and the [facility] Department of Health * stay home except to get medical care. Restrict activities outside your home, except for getting medical care. Do not go to work, school, or public areas. Avoid using public transportation, ride sharing, or taxis. * separate yourself from other people in your home. * call ahead before visiting your doctor * Wear a face mask * Cover your coughs and sneezes * Clean your hands often * Avoid sharing household items * Clean all high-touch services every day * Monitor your symptoms and seek prompt medical attention if your illness is worsening, particularly with difficulty in breathing. Discussed continuing home isolation * for individuals with symptoms who are confirmed or suspected cases of COVID-19 and are directed to care for themselves at home, discontinue home isolation under the following conditions: 1. At least 72 hours have passed since recovery, defined as resolution of fever without the use of fever reducing medications, and improvement in respiratory symptoms (cough, shortness of breath) AND, 2. At least 7 days have passed since symptoms 1st appeared Individuals with laboratory confirmed COVID-19 who have not had any symptoms may discontinue home isolation when at least 7 days have passed since the date of their 1st COVID-19 diagnostic test and have had no subsequent illness Prescriptions: New flecainide 50 mg tablet 50 mg PO Q8H Qty: 30 RF: 0 No Action Eliquis 5 mg tablet 5 mg PO BID RF: 0 atorvastatin [Lipitor] 10 mg tablet 10 mg PO HS Qty: 90 RF: 2 metoprolol succinate [Toprol XL] 25 mg tablet extended release 24 hr 25 mg PO QDAY Qty: 90 RF: 3 vit C,V-Kj-zlcde-lutein-zeaxan [Ocuvite Lutein and Zeaxanthin] 1 EACH capsule 1 cap PO QDAY Qty: 0 RF: 0 temazepam 15 mg capsule 15 mg PO BEDTIME PRN (Reason: sleep) Qty: 30 RF: 0 flecainide 50 mg tablet 50 mg PO Q12H RF: 0 Referrals: Shan Correia MD [Primary Care Provider] -
[2021-02-13 10:24] LABS: COVID19 -Nasal RAPID POSITIVE (Negative)
[2021-02-13 10:29] LABS: Add Manual Diff / Slide Review NO; Basophils Absolute Auto 0 /uL (0-100); Basophils Percent Auto 0.5 % (0-2); Eosinophils Absolute Auto 0 /uL (0-450); Eosinophils Percent Auto 0.2 % (2-4); Hematocrit 42.9 % (41-53); Hemoglobin 14.3 g/dL (13.5-17.5); Lymphocytes Absolute Auto 900 /uL (1100-4500); Lymphocytes Percent Auto 18.6 % (25-40); Mean Corpuscular HGB Conc 33.4 % (30-36); Mean Corpuscular Hemoglobin 31.7 PG (26-34); Mean Corpuscular Volume 95.1 fL (80-100); Monocytes Absolute Auto 600 /uL (0-900); Monocytes Percent Auto 13.1 % (3-14); Neutrophils Absolute Auto 3200 /uL (1500-7000); Neutrophils Percent Auto 67.6 % (50-75); Platelet Count 169 X10^3/uL (150-400); Red Blood Cell Count 4.51 X10^6/uL (4.5-5.9); Red Cell Distribution Width 13.7 % (11.6-14.8); White Blood Cell Count 4.8 X10^3/uL (4.5-11.0)
[2021-02-13 10:34] LABS: INR 1.6 (0.9-1.3); Prothrombin Time 18.1 SECONDS (10.1-12.7)
[2021-02-13 10:37] LABS: PTT Partial Thromboplastin Tim 35 SECONDS (26.4-36.2)
[2021-02-13 10:40] LABS: Alanine Aminotransferase 23 IU/L (<50); Albumin 3.9 g/dL (3.5-5.0); Albumin Globulin Ratio 1.3 (1.0-2.8); Alkaline Phosphatase 63 U/L (38-126); Aspartate Aminotransferase 34 IU/L (17-59); BUN Creatinine Ratio 15.3 (6-22); Bilirubin Total 0.7 mg/dL (0.2-1.3); Blood Urea Nitrogen 17 mg/dL (9-20); Carbon Dioxide 25 mmol/L (22-32); Chloride 100 mmol/L (98-107); Creatine Kinase 132 U/L (55-170); Estimated Glomerular Filt Rate > 60.0 mL/min (>60); Globulin 3.1 g/dL (1.7-4.1); Glucose 88 mg/dL (80-110); HEMOLYSIS < 15 (0-50); Magnesium 2.1 mg/dL (1.6-2.3); Potassium 4.1 mmol/L (3.4-5.1); Sodium 133 mmol/L (137-145)
[2021-02-13] MEDS: SODIUM CHLORIDE 0.9% 1,000 ML 150 ML IV (10:49)
[2021-02-13 10:51] LABS: Troponin I < 0.012 ng/mL (0.01-0.034)
[2021-02-13 10:55] LABS: CKMB % Relative Index 0.3 % (1.5-5.0); Creatine Kinase MB 0.43 ng/mL (<2.37)
[2021-02-13 11:29] LABS: NT-proBNP (BNP-Adult 18+) 870 pg/mL (<450)
--- NOTE | 2021-02-13 12:25 | PC.NURSE ---
Per MD request, 0.9% NS order was changed from 125 mls/hr to a gravity bolus.
--- NOTE | 2021-02-13 12:26 | PC.NURSE ---
Pt states he's been feeling unwell for 10 days.
--- NOTE | 2021-02-13 14:00 | PC.NURSE ---
Interrogated pt's pacemaker, report received.
== END 2021-02-13 15:11 | disposition home or self-care (01) ==
PROVIDERS: Emergency Provider Emergency Medicine; Family Provider Family Medicine; PCP Family Medicine
DX: U07.1 COVID-19 (principal); I48.92 Unspecified atrial flutter; Z79.01 Long term (current) use of anticoagulants; G47.00 Insomnia, unspecified; Z95.0 Presence of cardiac pacemaker
CPT/HCPCS: 36415; 71045; 80053; 82550; 82553; 83735; 83880; 84484; 85025; 85610; 85730; 87635; 93005; 96360; 96361; 99284; C9803

== ENCOUNTER → 2021-09-10 09:29 | Outpatient (CLI) | payer MEDICARE, BC, SELFPAY ==
[2021-09-10 10:52] LABS: Alanine Aminotransferase 18 IU/L (<50); Albumin 4.3 g/dL (3.5-5.0); Albumin Globulin Ratio 1.5 (1.0-2.8); Alkaline Phosphatase 59 U/L (38-126); Aspartate Aminotransferase 27 IU/L (17-59); BUN Creatinine Ratio 15.4 (6-22); Bilirubin Total 0.8 mg/dL (0.2-1.3); Blood Urea Nitrogen 20 mg/dL (9-20); Calcium 10.2 mg/dL (8.4-10.2); Carbon Dioxide 26 mmol/L (22-32); Chloride 104 mmol/L (98-107); Estimated Glomerular Filt Rate 54 mL/min (>60); Globulin 2.8 g/dL (1.7-4.1); Glucose 105 mg/dL (80-110); HEMOLYSIS < 15 (0-50); Potassium 4.8 mmol/L (3.4-5.1); Sodium 139 mmol/L (137-145); Total Protein 7.1 g/dL (6.3-8.2)
== END ==
PROVIDERS: Family Provider Family Medicine; PCP Family Medicine; Referring Provider Physician Assistant; Visit Provider Physician Assistant
DX: I48.0 Paroxysmal atrial fibrillation (principal)
CPT/HCPCS: 36415; 80053

== ENCOUNTER 2021-10-23 12:42 | Emergency (ER) | payer MEDICARE, BC, SELFPAY ==
[2021-10-23 13:03] VITALS: BP 118/57; PULSE 65; RESP 18; TEMP 36.2; O2SAT 94; BMI 25.4
--- NOTE | 2021-10-23 13:11 | DI.CT.S_ITS ---
PROCEDURE: CT HEAD/BRAIN WO CON INDICATIONS: fall on eliquis TECHNIQUE: Noncontrast 4.5 mm thick angled axial sections acquired from the foramen magnum to the vertex, with coronal and sagittal reformats. For radiation dose reduction, the following was used: automated exposure control, adjustment of mA and/or kV according to patient size. COMPARISON: [facility], CT, CT HEAD/BRAIN WO CON, 12/30/2017, 10:32. [facility], CT, CT HEAD/BRAIN WO CON, 07/26/2020, 13:42. FINDINGS: Image quality: Excellent. CSF spaces: Basal cisterns are patent. No extra-axial fluid collections. The ventricles are symmetric in size and shape. Brain: No intracranial bleeds or masses. There is mild cerebral volume loss for age, with resultant ventricular and sulcal prominence. There are moderate periventricular and deep white matter chronic small vessel ischemic changes. There is intracranial internal carotid artery atherosclerosis. Skull and face: Calvarium and visualized facial bones appear intact, without suspicious lesions. Mild frontal swelling. Sinuses: Visualized sinuses and mastoids are clear. IMPRESSION: 1. No acute intracranial abnormalities. 2. Cerebral volume loss and chronic microvascular ischemic changes. Dictated by: Tc Doe M.D. on 10/23/2021 at 13:43 Approved by: Tc Doe M.D. on 10/23/2021 at 13:45
--- NOTE | 2021-10-23 13:11 | DI.CT.S_ITS ---
PROCEDURE: CT CERVICAL SPINE WO CON INDICATIONS: fall TECHNIQUE: Noncontrast 3 mm thick sections acquired from the skull base to the T4 level. Sagittal and coronal reformats were then constructed. For radiation dose reduction, the following was used: automated exposure control, adjustment of mA and/or kV according to patient size. COMPARISON: [facility], CR, XR CHEST 1V, 02/13/2021, 10:29. FINDINGS: Image quality: Excellent. Bones: No fractures or dislocations. Mild degenerative disease and facet arthropathy. Visualized superior ribs are intact. Soft tissues: Prevertebral soft tissues are normal in thickness. No paravertebral hematomas. No apical pneumothoraces. There is a cardiac pacemaker. IMPRESSION: No acute cervical spine fractures. Dictated by: Tc Doe M.D. on 10/23/2021 at 13:45 Approved by: Tc Doe M.D. on 10/23/2021 at 13:47
--- NOTE | 2021-10-23 13:11 | DI.CT.S_ITS ---
PROCEDURE: CT FACIAL BONES WO CON INDICATIONS: fall TECHNIQUE: Noncontrast 2.5 mm thick axial images acquired from the mandible through the frontal sinuses, with coronal and sagittal reformatting. For radiation dose reduction, the following was used: automated exposure control, adjustment of mA and/or kV according to patient size. COMPARISON: [facility], CT, CT HEAD/BRAIN WO CON, 12/30/2017, 10:32. [facility], CT, CT HEAD/BRAIN WO CON, 07/26/2020, 13:42. FINDINGS: Image quality: Excellent. Bones and teeth: Minimally displaced left nasal bone fracture which is chronic. Orbital serra are intact. Sinus serra show no fracture or deformity. Visualized portions of the mandible demonstrate no fractures or subluxation. Zygomatic arches are intact. Pterygoid plates are intact. Visualized portions of the skull base and auditory canals are intact. Sinuses: Paranasal sinuses are aerated, without fluid levels, mucosal thickening, or mucoceles. Mastoid air cells are aerated. Soft tissues: No edema, masses, or fluid collections. No enlarged lymph nodes. No soft tissue lacerations or debris. Mild frontal scalp contusion. Vascular: Visualized vascular structures appear normal in the absence of contrast. Bony vascular foramina and canals are intact. IMPRESSION: 1. No acute facial bone fracture. 2. Minimally displaced chronic left nasal bone fracture. Dictated by: Tc Doe M.D. on 10/23/2021 at 13:49 Approved by: Tc Doe M.D. on 10/23/2021 at 13:54
--- NOTE | 2021-10-23 14:27 | ED_ITS ---
HPI - Fall General Chief Complaint: Fall Stated Complaint: Fall hit face- on thinners Time Seen by Provider: 10/23/21 13:11 Source: patient and family Mode of arrival: Wheelchair History of Present Illness HPI Narrative: Patient is a 86-year-old male who has a history of pacemaker, atrial fibrillation on Eliquis presenting after ground level fall. He says that he has neuropathy he is walking as he always does when he tripped. He landed on his face. No loss of consciousness no nausea vomiting. He felt some small facial abrasions. He denies any neck pain. No other injury. Related Data Home Medications Medication Instructions Recorded Confirmed vit C,E-Gv-gqupqy-lutein-zeaxan 60 1 cap PO QDAY #0 caps 12/29/12 02/06/21 mg-13.5 mg-15 mg-2 mg-6 mg capsule (Ocuvite Lutein and Zeaxanthin) flecainide 50 mg tablet 50 mg PO Q12H 01/04/18 02/06/21 apixaban 5 mg tablet (Eliquis) 5 mg PO BID 06/02/19 02/06/21 Previous Rx's Medication Instructions Recorded atorvastatin 10 mg tablet (Lipitor) 10 mg PO HS #90 tabs 06/02/19 metoprolol succinate 25 mg 25 mg PO QDAY #90 tabs 06/02/19 tablet,extended release 24 hr (Toprol XL) temazepam 15 mg capsule 15 mg PO BEDTIME PRN sleep #30 caps 04/04/20 flecainide 50 mg tablet 50 mg PO Q8H #30 tabs 02/13/21 albuterol sulfate 90 mcg/actuation See Rx Instructions inhalation SEE 02/17/21 aerosol inhaler (Proventil HFA) INSTRUCTIONS PRN shortness of breath or wheezing #1 inh Allergies Allergy/AdvReac Type Severity Reaction Status Date / Time No Known Drug Allergies Allergy Verified 02/13/21 09:59 Review of Systems Review of Systems Narrative: GENERAL: Denies chills, fatigue, malaise, fever, sweats, travel HEENT: Denies sinus pain, ear pain, sore throat, difficulty swallowing, neck pain RESPIRATORY: Denies dyspnea, cough, wheezing, hemoptysis, sputum. CARDIOVASCULAR: Denies chest pain, palpitations, orthopnea, edema GASTROINTESTINAL: Denies nausea, vomiting, abdominal pain, diarrhea, constipation, melena. : Denies dysuria, frequency, incontinence, hematuria, urinary retention, flank pain. MUSCULOSKELETAL: Denies weakness, joint pain, or bony pain SKIN: See HPI NEUROLOGIC: Denies weakness, dizziness, headache, numbness, change in speech, confusion PSYCHIATRIC: No concerning psychosocial issues. 12 point review of systems is negative except for those stated above and HPI Patient History Medical History Asthma (1958) Atrial fibrillation Cataract (~2007) Hearing loss (~1999) Hyperlipidemia Macular degeneration Measles Melanoma Mumps Wound, open, forearm Surgical History Anesthesia History of vasectomy S/P surgery on nasal septum (1978) Status post colonoscopy (2004) Status post tonsillectomy and adenoidectomy Family History Father Diabetes mellitus Mother Lymph node cancer Social History marital status: Smoking Status: Former smoker alcohol intake: current (1-2 A DAY ) substance use type: does not use Smoking Status: Former smoker tobacco type: pipe alcohol intake frequency: 0-2 drinks per day Substance Use Type: does not use Exam Initial Vital Signs Initial Vital Signs: Vital Signs Temperature 97.1 F L 10/23/21 13:03 Pulse Rate 65 10/23/21 13:03 Respiratory Rate 18 10/23/21 13:03 Blood Pressure 118/57 L 10/23/21 13:03 Pulse Oximetry 94 10/23/21 13:03 Oxygen Delivery Method 10/23/21 13:03 GENERAL: Alert 86-year-old male HEENT: Head atraumatic,EOMI, pupils reactive, face symmetric, moist mucous membranes NECK: No vertebral tenderness no step-off CARDIOVASCULAR: Regular rate and rhythm without murmurs, rubs or gallops. RESPIRATORY: Breath sounds equal bilaterally, no wheezes rales or rhonchi. ABDOMEN: Soft, nontender. Normoactive bowel sounds all 4 quadrants. No guarding or rebound. : No CVA tenderness EXTREMITIES: Normal range of motion, no clubbing or edema. Neurovascularly intact. No pelvic pain no shoulder pain NEUROLOGICAL: Alert and oriented x4.Normal gait and speech. 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 SKIN: Right superior lateral periorbital I have laceration 2.5 cm Course Orders Ordered: ED Orders 10/23/21 13:11 CT cervical spine wo con Stat CT facial bones wo con Stat CT head/brain wo con Stat Discontinued Medications Diphtheria/Tetanus/Acell Pertussis (Tet,Diph,Pertuss(Acell),Vac/Pf 0.5 Ml Syringe) 0.5 ml IM .ONCE ONE Stop: 10/23/21 14:42 Last Admin: 10/23/21 14:58 Dose: 0.5 ml Documented By: BRAVO Vital Signs Vital signs: Vital Signs - 8 hr 10/23/21 13:03 10/23/21 15:02 Temperature 97.1 F L Pulse Rate 65 62 Respiratory Rate 18 18 Blood Pressure 118/57 L 130/78 Pulse Oximetry 94 97 Oxygen Delivery Method Room Air Room Air MDM - Fall Imaging Data CT scan - head: Radiologist's Impression: CT Scan Report Signed Patient: Donavan Mendieta MR#: [id number] : 1935 Acct:[id number] Age/Sex: 86 / M Date of Service: 10/23/21 Loc: ED Accession Number: [id number] ?? Procedure: CT head/brain wo con Ordering Provider: Tita Johnson D.O. PROCEDURE:? CT HEAD/BRAIN WO CON ? INDICATIONS:? fall on eliquis ? TECHNIQUE:? Noncontrast 4.5 mm thick angled axial sections acquired from the foramen magnum to the vertex, with coronal and sagittal reformats.? For radiation dose reduction, the following was used:? automated exposure control, adjustment of mA and/or kV according to patient size.? ? COMPARISON:? [facility], CT, CT HEAD/BRAIN WO CON, 12/30/2017, 10:32.? [facility], CT, CT HEAD/BRAIN WO CON, 07/26/2020, 13:42. ? FINDINGS:? Image quality:? Excellent.? ? CSF spaces:? Basal cisterns are patent.? No extra-axial fluid collections.? The ventricles are symmetric in size and shape.? ? Brain:? No intracranial bleeds or masses.? There is mild cerebral volume loss for age, with resultant ventricular and sulcal prominence.? There are moderate periventricular and deep white matter chronic small vessel ischemic changes.? There is intracranial internal carotid artery atherosclerosis.? ? Skull and face:? Calvarium and visualized facial bones appear intact, without suspicious lesions.? Mild frontal swelling. ? Sinuses:? Visualized sinuses and mastoids are clear.? ? IMPRESSION:? ? 1. No acute intracranial abnormalities. 2. Cerebral volume loss and chronic microvascular ischemic changes. ? ? ? Dictated by: Tc Doe M.D. on 10/23/2021 at 13:43 ? ? CT - cervical spine: Radiologist's Impression: Signed Patient: Donavan Mendieta MR#: [id number] : 1935 Acct:[id number] Age/Sex: 86 / M Date of Service: 10/23/21 Loc: ED Accession Number: [id number] ?? Procedure: CT cervical spine wo con Ordering Provider: Tita Johnson D.O. PROCEDURE:? CT CERVICAL SPINE WO CON ? INDICATIONS:? fall ? TECHNIQUE:? Noncontrast 3 mm thick sections acquired from the skull base to the T4 level.? Sagittal and coronal reformats were then constructed.? For radiation dose reduction, the following was used:? automated exposure control, adjustment of mA and/or kV according to patient size.? ? COMPARISON:? [facility], CR, XR CHEST 1V, 02/13/2021, 10:29. ? FINDINGS:? Image quality:? Excellent.? ? Bones:? No fractures or dislocations.? Mild degenerative disease and facet arthropathy.? Visualized superior ribs are intact.? ? Soft tissues:? Prevertebral soft tissues are normal in thickness.? No paravertebral hematomas.? No apical pneumothoraces.? There is a cardiac pacemaker. ? ? IMPRESSION:? No acute cervical spine fractures. ? ? ? CT Facial: Radiologist's Impression: Signed Patient: Donavan Mendieta MR#: [id number] : 1935 Acct:[id number] Age/Sex: 86 / M Date of Service: 10/23/21 Loc: ED Accession Number: [id number] ?? Procedure: CT facial bones wo con Ordering Provider: Tita Johnson D.O. PROCEDURE:? CT FACIAL BONES WO CON ? INDICATIONS:? fall ? TECHNIQUE:? Noncontrast 2.5 mm thick axial images acquired from the mandible through the frontal sinuses, with coronal and sagittal reformatting.? For radiation dose reduction, the following was used:? automated exposure control, adjustment of mA and/or kV according to patient size.? ? COMPARISON:? [facility], CT, CT HEAD/BRAIN WO CON, 12/30/2017, 10:32.? [facility], CT, CT HEAD/BRAIN WO CON, 07/26/2020, 13:42. ? FINDINGS:? Image quality:? Excellent.? ? Bones and teeth:? Minimally displaced left nasal bone fracture which is chronic.? Orbital serra are intact.? Sinus serra show no fracture or deformity.? Visualized portions of the mandible demonstrate no fractures or subluxation.? Zygomatic arches are intact.? Pterygoid plates are intact.? Visualized portions of the skull base and auditory canals are intact.? ? Sinuses:? Paranasal sinuses are aerated, without fluid levels, mucosal thickening, or mucoceles.? Mastoid air cells are aerated.? ? Soft tissues:? No edema, masses, or fluid collections.? No enlarged lymph nodes.? No soft tissue lacerations or debris.? Mild frontal scalp contusion. ? Vascular:? Visualized vascular structures appear normal in the absence of contrast.? Bony vascular foramina and canals are intact.? ? IMPRESSION:? ? 1. No acute facial bone fracture. 2. Minimally displaced chronic left nasal bone fracture. ? ? ? Dictated by: Tc Doe M.D. on 10/23/2021 at 13:49 ? ? Approved by: Tc Doe M.D. on 10/23/2021 at 13:54 ? MDM Narrative Medical decision making narrative: Patient has some small lacerations over face. Easily fixed with Steri-Strips. CTs are negative. At this time no need for further workup Discharge Plan Departure Patient Disposition: Home Clinical Impression: Closed head injury, Laceration of face Instructions: DI for Laceration Repair-Skin Closure Strips, How to Prevent Falls Activity Restrictions/Additional Instructions: *You have been diagnosed with closed head injury, facial laceration *What to do: Please keep clean and dry with soap and water. Steri-Strips will fall off on their own. You may shower as needed. *Continue to take medications as directed Tylenol 650 mg every 4 hours if needed for [id number] pain *Follow up with your primary care provider in 2-3 days or call [phone] *Return to ER if you should have increasing pain swelling, persistent vomiting confusion weakness any new, worsening or concerning symptoms Prescriptions: No Action Eliquis 5 mg tablet 5 mg PO BID atorvastatin [Lipitor] 10 mg tablet 10 mg PO HS Qty: 90 2RF metoprolol succinate [Toprol XL] 25 mg tablet extended release 24 hr 25 mg PO QDAY Qty: 90 3RF vit C,Q-Ne-lmzbb-lutein-zeaxan [Ocuvite Lutein and Zeaxanthin] 1 EACH capsule 1 cap PO QDAY Qty: 0 temazepam 15 mg capsule 15 mg PO BEDTIME PRN (Reason: sleep) Qty: 30 0RF albuterol sulfate [Proventil HFA] 90 mcg/actuation HFA aerosol inhaler See Rx Instructions inhalation SEE INSTRUCTIONS PRN (Reason: shortness of breath or wheezing) Qty: 1 2RF Rx Instructions: 2 inhalations every 4-6 hours as needed for wheezing or shortness of breath flecainide 50 mg tablet 50 mg PO Q12H flecainide 50 mg tablet 50 mg PO Q8H Qty: 30 0RF Referrals: Shan Correia MD [Primary Care Provider] - Visit Report Forms: Patient Portal/API
[2021-10-23] MEDS: TET,DIPH,PERTUSS(ACELL),VAC/PF 0.5 ML SYRINGE IM (14:58)
[2021-10-23 15:02] VITALS: BP 130/78; PULSE 62; RESP 18; O2SAT 97
== END 2021-10-23 15:02 | disposition home or self-care (01) ==
PROVIDERS: Emergency Provider Emergency Medicine; Family Provider Family Medicine; PCP Family Medicine
DX: S01.81XA Laceration without foreign body of other part of head, initial encounter (principal); S09.90XA Unspecified injury of head, initial encounter; Z95.0 Presence of cardiac pacemaker; Z79.01 Long term (current) use of anticoagulants; W19.XXXA Unspecified fall, initial encounter; Z23 Encounter for immunization
CPT/HCPCS: 70450; 70486; 72125; 90471; 99284; 90715

== ENCOUNTER → 2021-11-06 07:32 | Outpatient (CLI) | payer MEDICARE, BC, SELFPAY ==
[2021-11-06 09:00] LABS: Add Manual Diff / Slide Review NO; Basophils Absolute Auto 0 /uL (0-100); Basophils Percent Auto 0.2 % (0-2); Eosinophils Absolute Auto 400 /uL (0-450); Eosinophils Percent Auto 5.2 % (2-4); Hematocrit 42.5 % (41-53); Hemoglobin 14.2 g/dL (13.5-17.5); Lymphocytes Absolute Auto 1700 /uL (1100-4500); Lymphocytes Percent Auto 25.3 % (25-40); Mean Corpuscular HGB Conc 33.4 % (30-36); Mean Corpuscular Hemoglobin 32.8 PG (26-34); Monocytes Absolute Auto 500 /uL (0-900); Neutrophils Absolute Auto 4200 /uL (1500-7000); Neutrophils Percent Auto 61.3 % (50-75); Platelet Count 214 X10^3/uL (150-400); Red Blood Cell Count 4.34 X10^6/uL (4.5-5.9); Red Cell Distribution Width 14.1 % (11.6-14.8); White Blood Cell Count 6.9 X10^3/uL (4.5-11.0)
[2021-11-06 09:48] LABS: Alanine Aminotransferase 16 IU/L (<50); Albumin 4.1 g/dL (3.5-5.0); Albumin Globulin Ratio 1.6 (1.0-2.8); Alkaline Phosphatase 48 U/L (38-126); Aspartate Aminotransferase 25 IU/L (17-59); BUN Creatinine Ratio 17.2 (6-22); Bilirubin Total 0.7 mg/dL (0.2-1.3); Blood Urea Nitrogen 20 mg/dL (9-20); Calcium 9.3 mg/dL (8.4-10.2); Carbon Dioxide 26 mmol/L (22-32); Chloride 102 mmol/L (98-107); Cholesterol 155 mg/dL (140-199); Estimated Glomerular Filt Rate > 60 mL/min (>60); Globulin 2.5 g/dL (1.7-4.1); Glucose 101 mg/dL (80-110); HDL Cholesterol 49 mg/dL (40-60); HEMOLYSIS < 15 (0-50); LDL Cholesterol Calculated 94 mg/dL (<100); Potassium 4.5 mmol/L (3.4-5.1); Sodium 136 mmol/L (137-145); Total Protein 6.6 g/dL (6.3-8.2); Triglycerides 59 mg/dL (35-150)
[2021-11-06 10:04] LABS: Vitamin D 25 Hydroxy (D3) 44.1 ng/mL (30.0-100.0)
[2021-11-06 10:18] LABS: TSH w/ Reflex to FT4 1.38 uIU/mL (0.47-4.68)
[2021-11-06 10:37] LABS: Vitamin B12 847 pg/mL (239-931)
== END ==
PROVIDERS: Family Provider Family Medicine; PCP Family Medicine; Referring Provider Physician Assistant; Visit Provider Physician Assistant
DX: G62.9 Polyneuropathy, unspecified (principal); E78.5 Hyperlipidemia, unspecified; E55.9 Vitamin D deficiency, unspecified; R29.898 Other symptoms and signs involving the musculoskeletal system; I48.0 Paroxysmal atrial fibrillation; R73.9 Hyperglycemia, unspecified; E53.8 Deficiency of other specified B group vitamins
CPT/HCPCS: 36415; 80053; 80061; 82306; 82607; 84443; 85025

== ENCOUNTER → 2022-05-05 08:29 | Outpatient (CLI) | payer MEDICARE, BC, SELFPAY ==
[2022-05-05 09:15] LABS: Alanine Aminotransferase 20 IU/L (<50); Alkaline Phosphatase 62 U/L (38-126); Aspartate Aminotransferase 27 IU/L (17-59); BUN Creatinine Ratio 17.9 (6-22); Bilirubin Total 0.7 mg/dL (0.2-1.3); Blood Urea Nitrogen 22 mg/dL (9-20); Calcium 9.6 mg/dL (8.4-10.2); Carbon Dioxide 28 mmol/L (22-32); Chloride 100 mmol/L (98-107); Estimated Glomerular Filt Rate 57 mL/min (>60); Glucose 92 mg/dL (80-110); HEMOLYSIS < 15 (0-50); Potassium 4.2 mmol/L (3.4-5.1); Sodium 140 mmol/L (137-145); Total Protein 7.8 g/dL (6.3-8.2)
[2022-05-08 15:59] LABS: Albumin 4.3 g/dL (3.5-5.0); Albumin Globulin Ratio 1.2 (1.0-2.8); Globulin 3.5 g/dL (1.7-4.1)
== END ==
PROVIDERS: Family Provider Family Medicine; PCP Family Medicine; Referring Provider Internal Medicine Cardiovascular Disease; Visit Provider Internal Medicine Cardiovascular Disease
DX: Z51.81 Encounter for therapeutic drug level monitoring (principal); Z79.899 Other long term (current) drug therapy
CPT/HCPCS: 36415; 80053

== ENCOUNTER → 2022-09-16 08:15 | Outpatient (CLI) | payer MEDICARE, BC, SELFPAY ==
[2022-09-16 09:10] LABS: Alanine Aminotransferase 21 IU/L (<50); Albumin 4.2 g/dL (3.5-5.0); Albumin Globulin Ratio 1.4 (1.0-2.8); Alkaline Phosphatase 71 U/L (38-126); Aspartate Aminotransferase 27 IU/L (17-59); BUN Creatinine Ratio 11.7 (6-22); Bilirubin Total 0.8 mg/dL (0.2-1.3); Blood Urea Nitrogen 14 mg/dL (9-20); Calcium 9.6 mg/dL (8.4-10.2); Carbon Dioxide 27 mmol/L (22-32); Chloride 103 mmol/L (98-107); Estimated Glomerular Filt Rate 59 mL/min (>60); Glucose 98 mg/dL (80-110); HEMOLYSIS < 15 (0-50); Potassium 4.3 mmol/L (3.4-5.1); Sodium 137 mmol/L (137-145); Total Protein 7.2 g/dL (6.3-8.2)
== END ==
PROVIDERS: Family Provider Family Medicine; PCP Family Medicine; Referring Provider Physician Assistant Medical; Visit Provider Physician Assistant Medical
DX: I48.0 Paroxysmal atrial fibrillation (principal)
CPT/HCPCS: 36415; 80053

== ENCOUNTER → 2023-05-25 07:02 | Outpatient (CLI) | payer MEDICARE, BC, SELFPAY ==
[2023-05-25 09:36] LABS: Alanine Aminotransferase 17 IU/L (<50); Albumin 4.2 g/dL (3.5-5.0); Albumin Globulin Ratio 1.4 (1.0-2.8); Alkaline Phosphatase 58 U/L (38-126); Aspartate Aminotransferase 27 IU/L (17-59); BUN Creatinine Ratio 16.2 (6-22); Bilirubin Total 0.8 mg/dL (0.2-1.3); Blood Urea Nitrogen 18 mg/dL (9-20); Carbon Dioxide 27 mmol/L (22-32); Chloride 104 mmol/L (98-107); Estimated Glomerular Filt Rate > 60 mL/min (>60); Globulin 2.9 g/dL (1.7-4.1); Glucose 95 mg/dL (80-110); HEMOLYSIS < 15 (0-50); Potassium 4.4 mmol/L (3.4-5.1); Sodium 138 mmol/L (137-145); Total Protein 7.1 g/dL (6.3-8.2)
== END ==
LOC: LAB 07:03
PROVIDERS: Family Provider Family Medicine; PCP Family Medicine; Referring Provider Physician Assistant Medical; Visit Provider Physician Assistant Medical
DX: I48.0 Paroxysmal atrial fibrillation (principal)
CPT/HCPCS: 36415; 80053

== ENCOUNTER → 2023-11-15 09:03 | Outpatient (CLI) | payer MEDICARE, BC, SELFPAY ==
[2023-11-15 09:48] LABS: Add Manual Diff / Slide Review NO; Basophils Absolute Auto 0 /uL (0-100); Basophils Percent Auto 0.2 % (0-2); Eosinophils Absolute Auto 400 /uL (0-450); Eosinophils Percent Auto 5.8 % (2-4); Hematocrit 39.9 % (41-53); Hemoglobin 13.5 g/dL (13.5-17.5); Lymphocytes Absolute Auto 1300 /uL (1100-4500); Lymphocytes Percent Auto 16.8 % (25-40); Mean Corpuscular HGB Conc 33.8 % (30-36); Mean Corpuscular Hemoglobin 33.5 PG (26-34); Monocytes Absolute Auto 600 /uL (0-900); Monocytes Percent Auto 8.5 % (3-14); Neutrophils Absolute Auto 5100 /uL (1500-7000); Neutrophils Percent Auto 68.7 % (50-75); Platelet Count 227 X10^3/uL (150-400); Red Blood Cell Count 4.03 X10^6/uL (4.5-5.9); Red Cell Distribution Width 14.3 % (11.6-14.8); White Blood Cell Count 7.4 X10^3/uL (4.5-11.0)
[2023-11-15 10:19] LABS: Alanine Aminotransferase 22 IU/L (<50); Albumin 4.3 g/dL (3.5-5.0); Albumin Globulin Ratio 1.6 (1.0-2.8); Alkaline Phosphatase 66 U/L (38-126); Aspartate Aminotransferase 51 IU/L (17-59); BUN Creatinine Ratio 25.7 (6-22); Bilirubin Total 1.2 mg/dL (0.2-1.3); Blood Urea Nitrogen 27 mg/dL (9-20); Calcium 9.5 mg/dL (8.4-10.2); Carbon Dioxide 22 mmol/L (22-32); Chloride 108 mmol/L (98-107); Cholesterol 138 mg/dL (140-199); Estimated Glomerular Filt Rate > 60 mL/min (>60); Globulin 2.7 g/dL (1.7-4.1); Glucose 93 mg/dL (80-110); HDL Cholesterol 59 mg/dL (40-60); HEMOLYSIS < 15 (0-50); LDL Cholesterol Calculated 61 mg/dL (<100); Potassium 4.4 mmol/L (3.4-5.1); Sodium 137 mmol/L (137-145); Triglycerides 90 mg/dL (35-150)
[2023-11-15 10:42] LABS: TSH w/ Reflex to FT4 1.77 uIU/mL (0.47-4.68)
[2023-11-15 10:44] LABS: Prostate Specific Antigen 9.54 ng/mL (0.10-4.00)
[2023-11-15 11:19] LABS: Folate > 20.0 ng/mL (2.76-20.0); Vitamin B12 885 pg/mL (239-931)
== END ==
PROVIDERS: Family Provider Family Medicine; PCP Family Medicine; Referring Provider Family Medicine; Visit Provider Family Medicine
DX: E78.5 Hyperlipidemia, unspecified (principal); N40.0 Benign prostatic hyperplasia without lower urinary tract symptoms; Z95.0 Presence of cardiac pacemaker; G62.9 Polyneuropathy, unspecified; I48.0 Paroxysmal atrial fibrillation
CPT/HCPCS: 36415; 80053; 80061; 82607; 82746; 84153; 84443; 85025

== ENCOUNTER → 2024-02-21 09:30 | Outpatient (CLI) | payer MEDICARE, BC, SELFPAY ==
[2024-02-23 23:09] LABS: PSA Free % 9.7 % (.); PSA, Total 11.1 ng/mL (0.0-4.0)
== END ==
PROVIDERS: Family Provider Family Medicine; PCP Family Medicine; Referring Provider Urology; Visit Provider Urology
DX: R97.20 Elevated prostate specific antigen [PSA] (principal); N40.0 Benign prostatic hyperplasia without lower urinary tract symptoms; R39.9 Unspecified symptoms and signs involving the genitourinary system
CPT/HCPCS: 36415; 84153; 84154

== ENCOUNTER → 2024-03-07 10:45 | Outpatient (CLI) | payer MEDICARE, BC, SELFPAY | PROVIDERS: Family Provider Family Medicine; PCP Family Medicine; Visit Provider Urology | DX: N40.1 Benign prostatic hyperplasia with lower urinary tract symptoms (principal); R97.20 Elevated prostate specific antigen [PSA]; R39.14 Feeling of incomplete bladder emptying; R39.12 Poor urinary stream; R35.1 Nocturia | CPT/HCPCS: 51798; 81002; 87086; 99213 ==

== ENCOUNTER → 2024-05-22 08:54 | Outpatient (CLI) | payer MEDICARE, BC, SELFPAY ==
[2024-05-23 07:08] LABS: PSA Free % 10.9 % (.); PSA, Total 5.7 ng/mL (0.0-4.0)
== END ==
PROVIDERS: Family Provider Family Medicine; PCP Family Medicine; Referring Provider Urology; Visit Provider Urology
DX: R97.20 Elevated prostate specific antigen [PSA] (principal)
CPT/HCPCS: 36415; 84153; 84154

== ENCOUNTER 2024-06-21 09:53 | Emergency (ER) | payer MEDICARE, BC, SELFPAY ==
[2024-06-21] VITALS (15 sets, daily range): BP systolic 147–189; BP diastolic 74–95; PULSE 63–80; RESP 16–36; TEMP 36.3; O2SAT 96–99; BMI 23.7
--- NOTE | 2024-06-21 09:57 | DI.CT.S_ITS ---
PROCEDURE: CT CERVICAL SPINE WO CON INDICATIONS: trauma TECHNIQUE: Noncontrast 3 mm thick sections acquired from the skull base to the T4 level. Sagittal and coronal reformats were then constructed. For radiation dose reduction, the following was used: automated exposure control, adjustment of mA and/or kV according to patient size. COMPARISON: [facility], CT, CT CERVICAL SPINE WO CON, 10/23/2021, 13:16. FINDINGS: Image quality: Excellent. Bones: No fractures or dislocations. Visualized superior ribs are intact. Soft tissues: Prevertebral soft tissues are normal in thickness. No paravertebral hematomas. No apical pneumothoraces. IMPRESSION: No displaced fracture or traumatic subluxation. Dictated by: Denzel Hairston M.D. on 06/21/2024 at 10:34 Approved by: Denzel Hairston M.D. on 06/21/2024 at 10:39
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
[2024-06-21 10:14] LABS: Add Manual Diff / Slide Review NO; Basophils Absolute Auto 0 /uL (0-100); Basophils Percent Auto 0.6 % (0-2); Eosinophils Absolute Auto 700 /uL (0-450); Eosinophils Percent Auto 9.9 % (2-4); Hematocrit 44.9 % (41-53); Hemoglobin 15.1 g/dL (13.5-17.5); Lymphocytes Absolute Auto 2200 /uL (1100-4500); Lymphocytes Percent Auto 32.7 % (25-40); Mean Corpuscular HGB Conc 33.6 % (30-36); Mean Corpuscular Hemoglobin 32.8 PG (26-34); Mean Corpuscular Volume 97.8 fL (80-100); Monocytes Absolute Auto 700 /uL (0-900); Monocytes Percent Auto 9.7 % (3-14); Neutrophils Absolute Auto 3200 /uL (1500-7000); Neutrophils Percent Auto 47.1 % (50-75); Platelet Count 230 X10^3/uL (150-400); Red Cell Distribution Width 13.5 % (11.6-14.8); White Blood Cell Count 6.7 X10^3/uL (4.5-11.0)
[2024-06-21 10:22] LABS: INR 1.3 (0.9-1.3); Prothrombin Time 14.7 SECONDS (9.4-12.5)
[2024-06-21 10:25] LABS: PTT Partial Thromboplastin Tim 33 SECONDS (25.1-36.5)
[2024-06-21 10:26] LABS: Alanine Aminotransferase 19 IU/L (<50); Albumin 4.5 g/dL (3.5-5.0); Albumin Globulin Ratio 1.4 (1.0-2.8); Alkaline Phosphatase 69 U/L (38-126); Aspartate Aminotransferase 30 IU/L (17-59); BUN Creatinine Ratio 17.7 (6-22); Bilirubin Total 0.6 mg/dL (0.2-1.3); Blood Urea Nitrogen 20 mg/dL (9-20); Calcium 9.7 mg/dL (8.4-10.2); Carbon Dioxide 25 mmol/L (22-32); Chloride 104 mmol/L (98-107); Estimated Glomerular Filt Rate > 60 mL/min (>60); Globulin 3.3 g/dL (1.7-4.1); Glucose 106 mg/dL (80-110); HEMOLYSIS < 15 (0-50); Potassium 4.4 mmol/L (3.4-5.1); Sodium 137 mmol/L (137-145); Total Protein 7.8 g/dL (6.3-8.2)
--- NOTE | 2024-06-21 10:26 | EKG_ITS ---
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
--- NOTE | 2024-06-21 10:32 | PC.NURSE ---
This RN brought patient to CT on [facility] and remained with patient throughout the process and brought patient back to room.
--- NOTE | 2024-06-21 10:43 | PC.NURSE ---
Pt refused pH paper test on eyeballs.
--- NOTE | 2024-06-21 10:45 | PC.NURSE ---
Patient arrives with a small cracks in glass of right lens of his glasses.
[2024-06-21] MEDS: LIDOCAINE 5% PATCH 1 EACH TOP (10:48)
[2024-06-21] MEDS: methocarbamoL 500 MG TABLET PO (10:49)
== END 2024-06-21 11:12 | disposition home or self-care (01) ==
PROVIDERS: Emergency Provider Student in an Organized Health Care Education/Training Program; Family Provider Family Medicine; PCP Family Medicine
DX: S20.212A Contusion of left front wall of thorax, initial encounter (principal); I10 Essential (primary) hypertension; I48.91 Unspecified atrial fibrillation; Z79.01 Long term (current) use of anticoagulants; Z95.0 Presence of cardiac pacemaker; V49.9XXA Car occupant (driver) (passenger) injured in unspecified traffic accident, initial encounter; W22.10XA Striking against or struck by unspecified automobile airbag, initial encounter; R29.700 NIHSS score 0
CPT/HCPCS: 36415; 70450; 71250; 72125; 80053; 85025; 85610; 85730; 93005; 99284

== ENCOUNTER → 2024-07-31 10:31 | Outpatient (CLI) | payer MEDICARE, BC, SELFPAY ==
[2024-07-31 12:15] LABS: Prostate Specific Antigen 7.71 ng/mL (0.10-4.00)
== END ==
PROVIDERS: Family Provider Family Medicine; PCP Family Medicine; Referring Provider Urology; Visit Provider Urology
DX: R97.20 Elevated prostate specific antigen [PSA] (principal)
CPT/HCPCS: 36415; 84153

== ENCOUNTER → 2024-12-28 07:23 | Outpatient (CLI) | payer MEDICARE, BC, SELFPAY ==
[2024-12-28 08:59] LABS: Blood Urea Nitrogen 17 mg/dL (9-20); Calcium 9.7 mg/dL (8.4-10.2); Carbon Dioxide 28 mmol/L (22-32); Chloride 104 mmol/L (98-107); Estimated Glomerular Filt Rate > 60 mL/min (>60); Glucose 93 mg/dL (70-99); HEMOLYSIS < 15 (0-50); Potassium 4.6 mmol/L (3.4-5.1); Sodium 138 mmol/L (137-145)
[2024-12-28 10:13] LABS: Prostate Specific Antigen 8.60 ng/mL (0.10-4.00)
== END ==
PROVIDERS: Nurse Practitioner Family; Family Provider Family Medicine; PCP Family Medicine; Referring Provider Urology; Visit Provider Urology
DX: R97.20 Elevated prostate specific antigen [PSA] (principal); I49.5 Sick sinus syndrome; N40.1 Benign prostatic hyperplasia with lower urinary tract symptoms
CPT/HCPCS: 36415; 80048; 84153